=== PATIENT | male | born 1970 | race Caucasian/White ===

== ENCOUNTER → 2020-10-06 12:52 | Outpatient (BNVA) | payer OTHER, SELFPAY | PROVIDERS: PCP Family Medicine; Visit Provider Nurse Practitioner Family | DX: Z20.822 Contact with and (suspected) exposure to COVID-19 (principal) | CPT/HCPCS: 87635 ==

== ENCOUNTER 2020-10-23 08:41 | Outpatient (CLI) | payer OTHER, SELFPAY ==
--- NOTE | 2020-10-23 08:47 | MR_ITS ---
WS: [id number] MRI RIGHT KNEE NONCONTRAST TECHNIQUE: Axial PD, coronal PD fat sat, coronal PD, sagittal PD, and sagittal PD fat-sat images obta ined. CLINICAL INFORMATION: RIGHT KNEE INTERNAL DERANGEMENT COMPARISON: None. FINDINGS: Distal quadriceps and patella tendons are intact. Hypertrophic patella. Normal ACL and PCL. Normal mis ne marrow signal in the femoral condyles and tibial plateau. Normal medial and lateral meniscus. No a cute appearing meniscal tears. Prepatellar and infrapatellar subcutaneous soft tissue edema. Moderate chondromalacia patella worse involving the medial patella facet. Normal medial collateral li gament. Small amount of fluid and edema along the lateral collateral ligament consistent with grade 1 -2 injury. Lateral collateral ligament appears grossly intact. Normal popliteus. Mild joint space jena rowing medial and lateral joint compartments. Mild chondromalacia. MR/MR knee RT wo con* [id number] IMPRESSION: 1. Normal ACL and PCL. 2. No acute appearing meniscal tears. Meniscus appears intact. 3. Small amount of fluid and edema involving the lateral collateral ligament c onsistent with grade 1-2 injury. Normal MCL. 4. Mild chondromalacia involving the medial and lateral joint compartments. 5. Soft tissue edema involving the lateral joint line soft tissues. 6. Moderate chondromalacia patella worse involving the medial patella facet. Outbridge grading: grade II: blister-like swelling/fraying of articular cartila ge extending to surface
== END 2020-10-23 08:42 | disposition home or self-care (01) ==
LOC: RADSHAW 08:44
PROVIDERS: PCP Nurse Practitioner Family; Visit Provider Physician Assistant
DX: M23.91 Unspecified internal derangement of right knee (principal); M22.41 Chondromalacia patellae, right knee; R60.0 Localized edema
CPT/HCPCS: 73721

== ENCOUNTER 2021-02-25 10:34 | Emergency (ER) | payer SELFPAY ==
[2021-02-25 10:34] VITALS: O2SAT 97
[2021-02-25 11:04] VITALS: BP 133/85; PULSE 86; RESP 17; O2SAT 97; BMI 34.0
--- NOTE | 2021-02-25 11:29 | W.ED.COVID ---
HPI - COVID General: Chief Complaint: COVID symptoms Stated Complaint: COVID + Time Seen by Provider: 02/25/21 11:09 Triage information: Has fever, cough or shortness of breath. Exposure to COVID + person last 14 days History of Present Illness: HPI Narrative: Unvaccinated individual that presents with COVID-positive test that he took last night at [facility]. Patient complains about muscle pain backache headache chills and fever. MD complaint: known COVID positive Prior covid testing: yes, results known Prior testing date: 02/24/21 COVID 19 common symptoms: positive fever(s), chills, fatigue, body aches and nausea; negative non-productive cough, productive cough, dyspnea, headache(s), throat pain or nasal congestion COVID 19 other sytmptoms: negative chest pain Onset (ago): day(s) Severity: mild Pertinent comorbid conditions: hypertension Treatment prior to arrival: none COVID Results: SARS-CoV-2 RNA (RT-PCR) Not detected (NOT DETECTED) 10/06/20 12:52 10/06/20 Review of Systems Const: Reports: fever(s), chills, body aches and fatigue Eyes: Denies: change in vision or blurry vision ENMT: Denies: throat pain or nasal congestion Card: Denies: chest pain or dyspnea on exertion Resp: Denies: dyspnea, productive cough or non-productive cough GI: Reports: nausea : Denies: difficulty urinating Musc: Denies: extremity pain Skin/Breast: Denies: rash Neuro: Denies: headache(s) Psych: Denies: anxiety or depression Ildefonso/Lymph: Denies: easy bruising PFS ED PFSH: Social History (Updated 10/06/20 @ 12:41 by Rosario Alfaro NP) Smoking and tobacco status: never smoked Alcohol intake: current Alcohol intake frequency: holidays/special occasions only Physical Exam Const: COMMON NORMALS: no acute distress, average body habitus and patient oriented x3 HENMT: COMMON NORMALS: normocephalic HEAD & SCALP: normal to inspection and normocephalic FACE & SINUS: normal facial exam Eye: COMMON NORMALS: conjunctivae normal GENERAL EYE: appearance normal, both eyes and all related structures CONJUNCTIVA: Yes conjunctivae normal Neck/C-Spine: COMMON NORMALS: no JVD Chest: COMMONS NORMALS: normal inspection of the chest Resp: COMMON NORMALS: normal respiratory effort Cardio: COMMON NORMALS: no JVD GI: INSPECTION: Yes normal to inspection Extremity: COMMON NORMALS: normal to inspection and full ROM Neuro: COMMON NORMALS: patient oriented x3 Psych: COMMON NORMALS: mental status grossly normal Course Vital Signs: Vital signs: Vital Signs Pulse Rate 86 02/25/21 11:04 Respiratory Rate 17 02/25/21 11:04 Blood Pressure 133/85 02/25/21 11:04 Pulse Oximetry 97 02/25/21 11:04 MDM - COVID COVID Results: SARS-CoV-2 RNA (RT-PCR) Not detected (NOT DETECTED) 10/06/20 12:52 10/06/20 Discharge Plan Discharge Patient Disposition: Home Clinical Impression: COVID-19 Condition: Stable Prescriptions: New Zofran 4 mg tablet 4 mg PO Q8H 3 Days Qty: 9 RF: 0 Decadron 6 mg tablet 6 mg PO DAILY Qty: 7 RF: 0 tramadol 50 mg tablet 50 mg PO TID PRN (Reason: pain) Qty: 7 RF: 0 No Action valsartan 80 mg tablet 80 mg PO DAILY RF: 0 buspirone 5 mg tablet 5 mg PO TID PRNRF: 0 venlafaxine 25 mg tablet 25 mg PO DAILY RF: 0 albuterol sulfate [ProAir HFA] 90 mcg/actuation HFA aerosol inhaler 2 puff inhalation Q6H PRNRF: 0 Flovent HFA 44 mcg/actuation HFA aerosol inhaler 2 puff inhalation DAILY RF: 0 Discharge Orders: Discharge ED (Routine); Ordered 02/25/21 Ordered By: David Inman Other Ambulatory Orders: Request for [facility] (Routine) Timeframe: 1 Day Facility: [facility] - Location: Outpatient Surgical Services Ordered By: David Inman Referrals: Suyapa Garcias NP [Primary Care Provider] - Discharge Diet: Advance as tolerated Discharge Activity: Increase activity as tolerated Patient Instructions: COVID-19 (Coronavirus Disease 2019) (ED) Activity Restrictions/Additional Instructions: Follow-up with medical provider as directed. Take medications as prescribed. Return to the ER or your medical provider if condition worsens. Please read and understand discharge instructions. If any questions ask please. Hospital will contact you with an appointment for the monoclonal antibody infusion clinic and you need to bring a copy of your COVID-19 test results with you to the clinic. Coding Level of Care Code ED Accounts Receivable Associate for Ying Fwd Exam Comprehensive
[2021-02-25] MEDS: ondansetron 4 MG Tablet PO (12:18)
[2021-02-25] MEDS: TRAMadol 50 mg Tablet PO (12:18)
[2021-02-25 12:21] VITALS: PULSE 84; RESP 16; O2SAT 97
== END 2021-02-25 12:22 | disposition home or self-care (01) ==
PROVIDERS: Emergency Provider Nurse Practitioner Family; PCP Nurse Practitioner Family
DX: U07.1 COVID-19 (principal)
CPT/HCPCS: 99283; Q0162

== ENCOUNTER 2021-04-20 23:38 | Emergency (ER) | payer BC, SELFPAY ==
[2021-04-20 23:51] VITALS: BP 167/94; PULSE 110; RESP 26; TEMP 38.4; O2SAT 96; BMI 35.4
--- NOTE | 2021-04-20 23:51 | ED_ITS ---
HPI - Nausea/Vomiting/Diarrhea General: Chief complaint: Nausea/Vomiting/Diarrhea Stated complaint: Headach\ADB Pain\Diahrea\Fever Time Seen by Provider: 04/20/21 23:41 Source: patient Mode of arrival: ambulatory Limitations: no limitations History of Present Illness: Patient is a 51-year-old male who presents to ED today with a complaint of abdominal pain, diarrhea, headache, fevers or chills. Patient states symptoms began yesterday. He is not having any nausea or vomiting. He does not complain of any bloody or black stools. He is currently rating abdominal pain at a 2/10. He denies sick contacts. He states he did eat [employer] Vill[employer] the day before symptoms started when asked about possible bad food exposures. He denies any URI symptoms. No cough, chest pain, or shortness of breath. MD elicited complaint: diarrhea and abdominal pain Onset (ago): day(s) Description of diarrhea: watery and semi-solid Associated nausea: No Associated abdominal pain: Yes Location of pain: Periumbilical Pain consistency: intermittent Severity: mild Quality: cramping Exacerbating factors: eating Relieving factors: none Associated symtoms: Reports headache(s); Denies change in vision, chest pain, dizziness, dysuria, nausea, palpitations or syncope Review of Systems Const: Reports: fever(s) and chills Eyes: Denies: change in vision, blurry vision, blind spots, photophobia, floaters or seeing flashes ENMT: Denies: throat pain, odynophagia, nasal discharge, nasal congestion or sinus pain Card: Denies: chest pain, palpitations, edema, lightheadedness, syncope or pre-syncope Resp: Denies: dyspnea, productive cough, non-productive cough, hemoptysis or chest congestion GI: Reports: abdominal pain and diarrhea; Denies: nausea, vomiting, hematemesis, heartburn, hematochezia or melena : Denies: flank pain, dysuria or hematuria Musc: Denies: neck pain, back pain, extremity pain or joint pain Skin/Breast: Denies: rash Neuro: Reports: headache(s); Denies: numbness in extremities, weakness in extremities, sensory changes, lack of coordination, difficulty walking, dizziness or confusion PFS ED PFSH: Medical History No pertinent family history Surgical History No pertinent past surgical history Social History Smoking and tobacco status: never smoked Alcohol intake: current Alcohol intake frequency: holidays/special occasions only Physical Exam Const: COMMON NORMALS: patient oriented x3, no limitations, alert and well nourished GENERAL APPEARANCE: cooperative and in distress (looks like he doesn't feel well ) ORIENTATION/CONSCIOUSNESS: Yes awake, Yes oriented to person, Yes oriented to place and Yes oriented to time HENMT: COMMON NORMALS: normocephalic and atraumatic HEAD & SCALP: normal to inspection, normocephalic and atraumatic FACE & SINUS: normal facial exam MOUTH: Normal oral and palatal mucosa present, lip normal and tongue normal THROAT: posterior oropharynx normal, tonsils normal and uvula midline Eye: GENERAL EYE: appearance normal, both eyes and all related structures Neck/C-Spine: COMMON NORMALS: full ROM and no lymphadenopathy Resp: COMMON NORMALS: normal respiratory effort and clear to auscultation bilaterally AUSCULTATION: clear to auscultation bilaterally Cardio: COMMON NORMALS: regular rhythm RATE: tachycardic (mild; pt is febrile) RHYTHM: regular rhythm GI: COMMON NORMALS: Normal to inspection, nondistended, normoactive bowel sounds present, Soft to palpation, non-tender, No hepatosplenomegaly present and no masses INSPECTION: Yes normal to inspection AUSCULTATION: Yes normoactive bowel sounds PALPATION: Yes Soft to palpation and Yes No hepatosplenomegaly present : COMMON NORMALS: Yes no CVA tenderness BLADDER/KIDNEY EXAM: Yes no CVA tenderness Back/Pelvis: COMMON NORMALS: no CVA tenderness Extremity: COMMON NORMALS: normal to inspection GENERAL: Yes normal exam except as noted Neuro: MIHAI COMA SCALE: document GCS findings Mihai coma scale eye opening: Spontaneous Mihai coma scale verbal response: Orientated Mihai coma scale motor response: Obey commands [place] coma scale total score: 15 COMMON NORMALS: patient oriented x3, moves all extremities, no focal motor deficits and no sensory deficits noted SENSORIUM/ORIENTATION: Yes alert, Yes oriented to person, Yes oriented to place and Yes oriented to time Skin: COMMON NORMALS: no rashes or lesions noted GENERAL SKIN EXAM: no rashes or lesions noted Course Vital Signs: Vital signs: Vital Signs Temperature 99.1 F 04/21/21 01:45 Pulse Rate 88 04/21/21 01:43 Respiratory Rate 16 04/21/21 02:34 Blood Pressure 167/94 04/20/21 23:51 Pulse Oximetry 92 04/21/21 01:43 MDM - Nausea/Vomiting/Diarrhea Medical Decision Making Patient is a 51-year-old male here for main concerns of diarrhea, body aches, and fevers. He states symptoms started the day after he ate [employer] Vill[employer]. He is currently rating his abdominal pain at a 2/10. He has not had any episodes of diarrhea while here so was not able to give a stool samples. He was written outpatient orders for these. Patient was febrile upon arrival but this has resolved after antipyretics. Lab work shows a white count of 11.6. CT scan showing diffuse infectious/inflammatory colitis. Patient is feeling much better after IV fluids and medications here. At this point recommend conservative therapies at home. Will prescribe Cipro/Flagyl and recommend patient start th javier in 24 to 48 hours if he does not seem to be improving. Strict return to ED precautions verbally given to patient. Lab Data : 04/20/21 23:50 04/20/21 23:50 Radiology Impressions Abdomen/Pelvis CT 04/21/21 00:37 IMPRESSION: 1. Fatty infiltration of the liver. 2. Diffuse infectious/inflammatory colitis. 3. Infectious/inflammatory terminal ileitis. 4. There are few loops of mildly prominent small bowel , nonspecific and likely reactive secondary to ileitis and colitis. Laboratory Results WBC 11.6 10^3/uL (4.0-10.0) H 04/20/21 23:50 RBC 4.95 10^6/uL (4.1-5.3) 04/20/21 23:50 Hgb 14.9 g/dL (11.7-16.6) 04/20/21 23:50 Hct 42.9 % (42.0-52.0) 04/20/21 23:50 MCV 86.7 fl (80-94) 04/20/21 23:50 MCH 30.1 pg (28.0-34.0) 04/20/21 23:50 MCHC 34.7 g/dL (30.0-36.0) 04/20/21 23:50 RDW 12.3 % (12.1-15.1) 04/20/21 23:50 Plt Count 211 10^3/cmm (130-400) 04/20/21 23:50 MPV 11.6 fL (7.4-10.4) H 04/20/21 23:50 Neut % (Auto) 83.6 % 04/20/21 23:50 Lymph % (Auto) 9.6 % 04/20/21 23:50 [place] % (Auto) 6.2 % 04/20/21 23:50 Eos % (Auto) 0.0 % 04/20/21 23:50 Baso % (Auto) 0.3 % 04/20/21 23:50 Neut # (Auto) 9.71 10^3/uL (1.8-7.7) H 04/20/21 23:50 Lymph # (Auto) 1.1 10^3/uL (0.8-4.8) 04/20/21 23:50 [place] # (Auto) 0.7 10^3/uL (0.2-0.9) 04/20/21 23:50 Eos # (Auto) 0.0 10^3/uL (0.0-0.8) 04/20/21 23:50 Baso # (Auto) 0.0 10^3/uL (0.0-0.1) 04/20/21 23:50 Nucleated RBC % (auto) 0 % 04/20/21 23:50 Nucleated RBCs # 0.0 /100WBC 04/20/21 23:50 Sodium 131 mmol/L (136-145) L 04/20/21 23:50 Potassium 3.4 mmol/L (3.5-5.1) L 04/20/21 23:50 Chloride 95 mmol/L (98-107) L 04/20/21 23:50 Carbon Dioxide 23 mmol/L (22-29) 04/20/21 23:50 Anion Gap 16.4 (5-19) 04/20/21 23:50 BUN 15 mg/dL (6-20) 04/20/21 23:50 Creatinine 1.0 mg/dL (0.7-1.2) 04/20/21 23:50 GFR Calculation 79.1 mL/min (90-130) L 04/20/21 23:50 Glucose 149 mg/dL (65-115) H 04/20/21 23:50 Calculated Osmolality 276 mOsm/kg (285-295) L 04/20/21 23:50 Calcium 8.9 mg/dL (8.5-10.5) 04/20/21 23:50 Total Bilirubin 0.5 mg/dL (0.15-1.2) 04/20/21 23:50 AST 24 U/L (0-40) 04/20/21 23:50 ALT 41 U/L (0-41) 04/20/21 23:50 Alkaline Phosphatase 67 IU/L (40-130) 04/20/21 23:50 Total Protein 7.2 g/dL (6.6-8.7) 04/20/21 23:50 Albumin 4.4 g/dL (3.5-5.2) 04/20/21 23:50 Globulin 2.8 g/dL (1.3-4.6) 04/20/21 23:50 Lipase 72 U/L (13-60) H 04/20/21 23:50 Urine Color Yellow (Yellow) 04/21/21 02:03 Urine Appearance Clear (CLEAR) 04/21/21 02:03 Urine pH 6.5 (5-7) 04/21/21 02:03 Ur Specific [place] 1.005 (1.005-1.030) 04/21/21 02:03 Urine Protein 1+ (Negative) H 04/21/21 02:03 Urine Glucose (UA) Norm (Normal) 04/21/21 02:03 Urine Ketones 1+ (Negative) H 04/21/21 02:03 Urine Blood Neg (Negative) 04/21/21 02:03 Urine Nitrate Negative (Negative) 04/21/21 02:03 Urine Bilirubin Neg (Negative) 04/21/21 02:03 Urine Urobilinogen Norm mg/dL (Negative) 04/21/21 02:03 Ur Leukocyte Esterase Negative (Negative) 04/21/21 02:03 Urine RBC 0-4 /hpf (0-2) H 04/21/21 02:03 Urine WBC 0-4 /hpf (0-5) H 04/21/21 02:03 Ur Squamous Epith Cells 0-4 /hpf (0-5) H 04/21/21 02:03 Amorphous Sediment Not Reportable 04/21/21 02:03 Urine Bacteria Trace /hpf (NONE) 04/21/21 02:03 Coronavirus 229E (PCR) Not detected (NOT DETECT) 04/21/21 01:42 Influenza Type A Ag Negative (Negative) 04/20/21 23:50 Influenza Type B Ag Negative (Negative) 04/20/21 23:50 SARS-CoV-2 (PCR) Not detected (NOT DETECT) 04/21/21 01:42 SARS-CoV-2 RNA (RT-PCR) Cancelled 04/21/21 01:42 Discharge Plan Discharge Patient Disposition: Home Clinical Impression: Colitis Condition: Stable Prescriptions: New Cipro 500 mg tablet 500 mg PO Q12H Qty: 14 0RF metronidazole 500 mg tablet 500 mg PO BID 7 Days Qty: 14 0RF No Action valsartan 80 mg tablet 80 mg PO DAILY 0RF buspirone 5 mg tablet 5 mg PO TID PRN0RF venlafaxine 25 mg tablet 25 mg PO DAILY 0RF albuterol sulfate [ProAir HFA] 90 mcg/actuation HFA aerosol inhaler 2 puff inhalation Q6H PRN0RF Flovent HFA 44 mcg/actuation HFA aerosol inhaler 2 puff inhalation DAILY 0RF Rx Instructions: administer with spacer Decadron 6 mg tablet 6 mg PO DAILY Qty: 7 0RF tramadol 50 mg tablet 50 mg PO TID PRN (Reason: pain) Qty: 7 0RF Discharge Orders: Discharge ED (Routine); Ordered 04/21/21 Ordered By: Peri Conte Referrals: Suyapa Garcias END USER SUPPORT SPECIALIST [Primary Care Provider] - Patient Instructions: Colitis (ED) Activity Restrictions/Additional Instructions: As we discussed most cases of acute diarrhea/enterocolitis are self-limited and treatment is geared towards hydration. We have attempted stool samples here but were unsuccessful. You have been given an outpatient order for these-you may bring sample to the lab at any time. I have written you for antibiotics that I only want you to fill if symptoms do not improve over the next 24 to 48 hours. You need to return to the emergency department for severe abdominal pain, repetitive episodes of diarrhea, bloody diarrhea, repetitive episodes of vomiting, continued fevers, generally feeling unwell, or any other concerns you may have. I hope you begin to feel better soon. Coding Level of Care Code ED Library Aide for Ying Fwd Exam Comprehensive
[2021-04-20] MEDS: acetaminophen 500 mg Tablet 1000 MG PO (23:57)
[2021-04-20] MEDS: lactated ringers 1,000 ML 999 ML IV (23:57)
[2021-04-21 00:17] LABS: Basophils % 0.3 %; Hematocrit 42.9 % (42.0-52.0); Hemoglobin 14.9 g/dL (11.7-16.6); Lymphocytes # 1.1 10^3/uL (0.8-4.8); Lymphocytes % 9.6 %; Mean Corpuscular HGB Conc 34.7 g/dL (30.0-36.0); Mean Corpuscular Hemoglobin 30.1 pg (28.0-34.0); Mean Corpuscular Volume 86.7 fl (80-94); Mean Platelet Volume 11.6 fL (7.4-10.4); Monocytes # 0.7 10^3/uL (0.2-0.9); Monocytes % 6.2 %; Neutrophils # 9.71 10^3/uL (1.8-7.7); Neutrophils % 83.6 %; Nucleated Red Blood Cells % 0 %; Platelet Count 211 10^3/cmm (130-400); Red Blood Count 4.95 10^6/uL (4.1-5.3); Red Cell Distribution Width 12.3 % (12.1-15.1); White Blood Count 11.6 10^3/uL (4.0-10.0)
[2021-04-21 00:27] LABS: Alanine Aminotransferase 41 U/L (0-41); Albumin Level 4.4 g/dL (3.5-5.2); Alkaline Phosphatase 67 IU/L (40-130); Anion Gap 16.4 (5-19); Blood Urea Nitrogen 15 mg/dL (6-20); Calcium 8.9 mg/dL (8.5-10.5); Carbon Dioxide 23 mmol/L (22-29); Chloride 95 mmol/L (98-107); Globulin 2.8 g/dL (1.3-4.6); Glomerular Filtration Rate 79.1 mL/min (90-130); Glucose 149 mg/dL (65-115); Influenza A by IFA Negative (Negative); Influenza B by IFA Negative (Negative); Lipase 72 U/L (13-60); Osmolality Calculated 276 mOsm/kg (285-295); Potassium 3.4 mmol/L (3.5-5.1); Sodium 131 mmol/L (136-145); Total Bilirubin 0.5 mg/dL (0.15-1.2); Total Protein 7.2 g/dL (6.6-8.7)
[2021-04-21 00:36] LABS: Aspartate Amino Transferase 24 U/L (0-40)
--- NOTE | 2021-04-21 00:37 | CTR_ITS ---
PROCEDURE INFORMATION: Exam: CT Abdomen And Pelvis With Contrast Exam date and time: 04/21/2021 12:37 AM Age: 51 years old Clinical indication: Fever and other: Diarrhea; Abdominal pain; Generalized; Patient HX: Diffuse abd pain with fever and diarrhea. ; Additional info: Abdominal pain, diarrhea, fevers TECHNIQUE: Imaging protocol: Computed tomography of the abdomen and pelvis with contrast. Radiation optimization: All CT scans at this facility use at least one of these dose optimization techniques: automated exposure control; mA and/or kV adjustment per patient size (includes targeted exams where dose is matched to clinical indication); or iterative reconstruction. Contrast material: OMNI 300; Contrast volume: 90 ml; Contrast route: INTRAVENOUS (IV); COMPARISON: CTA Chest-Pulmonary Emb [id number] 01/12/2016 8:30 AM RADIATION DOSE METRICS: Total DLP (mGy-cm): 1875.21 FINDINGS: Lungs: The lung bases are clear. No effusion Liver: There is fatty infiltration of the liver. Gallbladder and bile ducts: No wall thickening, pericholecystic fluid or stones. Pancreas: Normal. No ductal dilation. Spleen: Normal. No splenomegaly. Adrenal glands: Normal. No mass. Kidneys and ureters: Normal. No hydronephrosis. Stomach and bowel: There is mild colon wall thickening and pericolonic fat stranding . There is thickening of the wall of the terminal ileum with adjacent fat stranding. There are few loops of mildly prominent small bowel , nonspecific and likely reactive secondary to ileitis and colitis. Appendix: No evidence of appendicitis. Intraperitoneal space: Unremarkable. No free air. No significant fluid collection. Vasculature: Unremarkable. No abdominal aortic aneurysm. Lymph nodes: There are few visualized but nonenlarged lymph nodes medial to the cecum, likely reactive. Urinary bladder: Unremarkable as visualized. Reproductive: Unremarkable as visualized. Bones/joints: Unremarkable. No acute fracture. Soft tissues: Unremarkable. CT/CT abdomen pelvis w con* [id number] IMPRESSION: 1. Fatty infiltration of the liver. 2. Diffuse infectious/inflammatory colitis. 3. Infectious/inflammatory terminal ileitis. 4. There are few loops of mildly prominent small bowel , nonspecific and likely reactive secondary to ileitis and colitis.
[2021-04-21 00:41] VITALS: RESP 22
[2021-04-21] MEDS: ondansetron 2 mg/ML SDV 2 mL 4 MG IVP (00:41)
[2021-04-21] MEDS: morphine 4 mg/mL SDV 1 mL IVP (00:41)
[2021-04-21] MEDS: potassium chloride ER 20 mEq Tablet 40 MEQ PO (00:44)
[2021-04-21] MEDS: iohexol 300 mg/mL 100 mL Btl IV (00:52)
[2021-04-21 01:43] VITALS: PULSE 88; RESP 18; O2SAT 92
[2021-04-21 01:45] VITALS: TEMP 37.3
[2021-04-21 02:28] LABS: Add Urine Microscopic? YES; Bilirubin Urine Neg (Negative); Blood Urine Neg (Negative); Glucose Urine UA Norm (Normal); Ketones Urine 1+ (Negative); Leukocyte Esterase Urine Negative (Negative); Nitrate Urine Negative (Negative); Protein Urine 1+ (Negative); Specific Gravity, Urine 1.005 (1.005-1.030); Urine Appearance Clear (CLEAR); Urine Color Yellow (Yellow); Urobilinogen Urine Norm (Negative); pH Urine 6.5 (5-7)
[2021-04-21 02:29] LABS: RBC Urine 0-4 /hpf (0-2); WBC Urine 0-4 /hpf (0-5)
[2021-04-21 02:30] LABS: Add Urine Culture? No; Bacteria Urine TRACE /hpf; Squamous Epithelial Cell Urine 0-4 /hpf (0-5)
[2021-04-21 02:34] VITALS: RESP 16
[2021-04-21 04:37] LABS: Adenovirus Not Detected (NOT DETECT); Chlamydia Pneumoniae Not Detected (NOT DETECT); Coronavirus 229E,HKU1,NL63,OC4 Not Detected (NOT DETECT); Human Metapneumovirus Not Detected (NOT DETECT); Human Rhinovirus/Enterovirus Not Detected (NOT DETECT); Influenza A Not Detected (NOT DETECT); Influenza A H1 Not Detected (NOT DETECT); Influenza A H1-2009 Not Detected (NOT DETECT); Influenza A H3 Not Detected (NOT DETECT); Influenza B Not Detected (NOT DETECT); Mycoplasma Pneumoniae Not Detected (NOT DETECT); Parainfluenza Virus Type 1 Not Detected (NOT DETECT); Parainfluenza Virus Type 2 Not Detected (NOT DETECT); Parainfluenza Virus Type 3 Not Detected (NOT DETECT); Parainfluenza Virus Type 4 Not Detected (NOT DETECT); Respiratory Syncytial Virus A Not Detected (NOT DETECT); Respiratory Syncytial Virus B Not Detected (NOT DETECT); SARS-COV-2 Not Detected (NOT DETECT)
== END 2021-04-21 02:35 | disposition home or self-care (01) ==
PROVIDERS: Emergency Provider Physician Assistant; PCP Nurse Practitioner Family
DX: K52.9 Noninfective gastroenteritis and colitis, unspecified (principal); Z20.822 Contact with and (suspected) exposure to COVID-19
CPT/HCPCS: 74177; 80053; 81001; 82274; 83630; 83690; 85025; 87493; 87506; 87635; 87804; 96361; 96374; 96375; 99284; J2270; J2405; Q9967

== ENCOUNTER 2021-04-21 13:26 | Emergency (ER) | payer BC, SELFPAY ==
[2021-04-21 13:32] VITALS: BP 145/82; PULSE 92; RESP 20; TEMP 36.7; O2SAT 98; BMI 35.4
--- NOTE | 2021-04-21 13:49 | ED_ITS ---
Documented by User: OMAR Paniagua 04/22/21 07:10 HPI - Abdominal Pain General: Chief Complaint: Abdominal Pain Stated Complaint: diarrhea, headache x3 days Time Seen by Provider: 04/21/21 13:37 History of Present Illness: Patient is a 51-year-old male comes to the ED with abdominal pain. Patient was seen here last night April 20 for same complaint. Patient is having a headache and abdominal pain along with nausea and diarrhea. He says he has been having liquid diarrhea every 20 to 30 minutes today. Abdominal pain described as cramping and he rates it a 10 out of 10. Denies any blood in stool. Associated Symptoms: Reports diarrhea and nausea; Denies chills, constipation, dysuria, fever(s), hematochezia, hematuria and vomiting Review of Systems Const: Denies: fever(s), chills or fatigue Eyes: Denies: change in vision or eye discomfort ENMT: Denies: throat pain, odynophagia, nasal discharge or nasal congestion Card: Denies: chest pain, palpitations, edema, swelling of feet/ankles, dyspnea on exertion or orthopnea Resp: Denies: dyspnea, productive cough or non-productive cough GI: Reports: abdominal pain, nausea and diarrhea; Denies: vomiting, constipation or hematochezia : Denies: flank pain, difficulty urinating, dysuria or hematuria Musc: Denies: neck pain, back pain or extremity swelling Skin/Breast: Denies: rash or new lesions Neuro: Reports: headache(s); Denies: numbness in extremities or weakness in extremities [facility], LAT[facility] ED PFSH: Medical History No pertinent family history Surgical History No pertinent past surgical history Social History Smoking and tobacco status: never smoked Alcohol intake: current Alcohol intake frequency: holidays/special occasions only Physical Exam Const: COMMON NORMALS: patient oriented x3 and alert GENERAL APPEARANCE: cooperative HENMT: COMMON NORMALS: normocephalic HEAD & SCALP: normocephalic MOUTH: Normal oral and palatal mucosa present THROAT: posterior oropharynx normal and uvula midline Neck/C-Spine: COMMON NORMALS: supple GENERAL: Yes normal visual inspection Resp: COMMON NORMALS: normal respiratory effort, No retractions, No use of accessory muscles and clear to auscultation bilaterally AUSCULTATION: clear to auscultation bilaterally Cardio: COMMON NORMALS: regular rate, regular rhythm, S1 normal heart sound present, S2 normal heart sound present, No gallops present (Cardio), No clicks present (Cardio), No murmurs present (Cardio) and Peripheral pulses 2+ throughout RATE: regular rate RHYTHM: regular rhythm HEART SOUNDS: S1 normal heart sound present and S2 normal heart sound present PERIPHERAL PULSES: Peripheral pulses 2+ throughout GI: COMMON NORMALS: Normal to inspection, nondistended, normoactive bowel sounds present, Soft to palpation and no masses PALPATION: Yes Soft to palpation and Yes Tenderness to palpation present (GI) Details: other (generalized tenderness throughout abdomen) : COMMON NORMALS: Yes no CVA tenderness BLADDER/KIDNEY EXAM: Yes no CVA tenderness Back/Pelvis: COMMON NORMALS: no CVA tenderness Extremity: COMMON NORMALS: normal to inspection Neuro: COMMON NORMALS: patient oriented x3 SENSORIUM/ORIENTATION: Yes alert GAIT: Yes Normal gait present Skin: GENERAL SKIN EXAM: dry skin Course Vital Signs: Vital signs: Vital Signs Temperature 97.4 F L 04/21/21 16:30 Pulse Rate 88 04/21/21 18:00 Respiratory Rate 18 04/21/21 18:00 Blood Pressure 174/88 04/21/21 18:00 Pulse Oximetry 96 04/21/21 18:00 MDM - Abdominal Pain Lab Data I reviewed the patient's lab results. : 04/21/21 14:05 04/21/21 14:05 Labs/Radiology: Radiology Impressions Abdomen/Pelvis CT 04/21/21 17:03 IMPRESSION: 1. Redemonstration of mild wall thickening and surrounding inflammation/fluid at the terminal ileum as well as mild wall thickening with mild surrounding inflammation of the descending colon. Findings are suspicious for ileocolitis that may be infectious or inflammatory in nature. 2. Incidental/nonacute findings are listed in the report. Laboratory Results WBC 7.3 10^3/uL (4.0-10.0) 04/21/21 14:05 RBC 4.99 10^6/uL (4.1-5.3) 04/21/21 14:05 Hgb 14.8 g/dL (11.7-16.6) 04/21/21 14:05 Hct 43.0 % (42.0-52.0) 04/21/21 14:05 MCV 86.2 fl (80-94) 04/21/21 14:05 MCH 29.7 pg (28.0-34.0) 04/21/21 14:05 MCHC 34.4 g/dL (30.0-36.0) 04/21/21 14:05 RDW 12.5 % (12.1-15.1) 04/21/21 14:05 Plt Count 182 10^3/cmm (130-400) 04/21/21 14:05 MPV 10.8 fL (7.4-10.4) H 04/21/21 14:05 Neut % (Auto) 77.6 % 04/21/21 14:05 Lymph % (Auto) 14.5 % 04/21/21 14:05 Ramsey % (Auto) 7.1 % 04/21/21 14:05 Eos % (Auto) 0.3 % 04/21/21 14:05 Baso % (Auto) 0.4 % 04/21/21 14:05 Neut # (Auto) 5.65 10^3/uL (1.8-7.7) 04/21/21 14:05 Lymph # (Auto) 1.1 10^3/uL (0.8-4.8) 04/21/21 14:05 Ramsey # (Auto) 0.5 10^3/uL (0.2-0.9) 04/21/21 14:05 Eos # (Auto) 0.0 10^3/uL (0.0-0.8) 04/21/21 14:05 Baso # (Auto) 0.0 10^3/uL (0.0-0.1) 04/21/21 14:05 Nucleated RBC % (auto) 0 % 04/21/21 14:05 Nucleated RBCs # 0.0 /100WBC 04/21/21 14:05 Sodium 134 mmol/L (136-145) L 04/21/21 14:05 Potassium 3.8 mmol/L (3.5-5.1) 04/21/21 14:05 Chloride 99 mmol/L (98-107) 04/21/21 14:05 Carbon Dioxide 25 mmol/L (22-29) 04/21/21 14:05 Anion Gap 13.8 (5-19) 04/21/21 14:05 BUN 17 mg/dL (6-20) 04/21/21 14:05 Creatinine 0.8 mg/dL (0.7-1.2) 04/21/21 14:05 GFR Calculation 102.3 mL/min (90-130) 04/21/21 14:05 Glucose 119 mg/dL (65-115) H 04/21/21 14:05 Calculated Osmolality 281 mOsm/kg (285-295) L 04/21/21 14:05 Lactic Acid 1.0 mmol/L (0.5-2.2) 04/21/21 14:51 Calcium 9.3 mg/dL (8.5-10.5) 04/21/21 14:05 Total Bilirubin 0.5 mg/dL (0.15-1.2) 04/21/21 14:05 AST 20 U/L (0-40) 04/21/21 14:05 ALT 35 U/L (0-41) 04/21/21 14:05 Alkaline Phosphatase 65 IU/L (40-130) 04/21/21 14:05 Total Protein 7.3 g/dL (6.6-8.7) 04/21/21 14:05 Albumin 4.0 g/dL (3.5-5.2) 04/21/21 14:05 Globulin 3.3 g/dL (1.3-4.6) 04/21/21 14:05 Lipase 62 U/L (13-60) H 04/21/21 14:05 Discharge Plan Discharge Patient Disposition: Home Clinical Impression: Ileocolitis Condition: Stable Prescriptions: No Action valsartan 80 mg tablet 80 mg PO DAILY 0RF buspirone 5 mg tablet 5 mg PO TID PRN0RF venlafaxine 25 mg tablet 25 mg PO DAILY 0RF albuterol sulfate [ProAir HFA] 90 mcg/actuation HFA aerosol inhaler 2 puff inhalation Q6H PRN0RF Flovent HFA 44 mcg/actuation HFA aerosol inhaler 2 puff inhalation DAILY 0RF Rx Instructions: administer with spacer Decadron 6 mg tablet 6 mg PO DAILY Qty: 7 0RF tramadol 50 mg tablet 50 mg PO TID PRN (Reason: pain) Qty: 7 0RF Cipro 500 mg tablet 500 mg PO Q12H Qty: 14 0RF metronidazole 500 mg tablet 500 mg PO BID 7 Days Qty: 14 0RF Discharge Orders: Discharge ED (Routine); Ordered 04/21/21 Ordered By: Peri Conte Referrals: Suyapa Garcias ENRICHMENT TEACHER [Primary Care Provider] - Activity Restrictions/Additional Instructions: As we discussed fill the antibiotics from yesterday and start them immediately. Continue to push fluids to avoid dehydration. Stick with a very bland liquid diet over the next 1 to 2 days and slowly advance as tolerated. You need to return to the emergency department for severe or uncontrollable abdominal pain, continued fevers, repetitive episodes of vomiting, large amounts of blood in your diarrhea, generally feeling unwell, or any other concerns you may have. I hope you begin to feel better soon. Sign Out Sign Out Data: Patient Sign Out occurred on 04/21/21 at 17:12. Patient's care was discussed, and care was transferred from to OMAR Chaney. Coding Level of Care Code ED Secondary English Teacher for Chg Fwd Exam Comprehensive Documented by User: OMAR Chaney 04/21/21 18:05 HPI - Abdominal Pain General: Chief Complaint: Abdominal Pain Stated Complaint: diarrhea, headache x3 days Time Seen by Provider: 04/21/21 13:37 [facility] ED PFSH: Medical History No pertinent family history Surgical History No pertinent past surgical history Social History Smoking and tobacco status: never smoked Alcohol intake: current Alcohol intake frequency: holidays/special occasions only Course Vital Signs: Vital signs: Vital Signs Temperature 97.4 F L 04/21/21 16:30 Pulse Rate 88 03/08/22 18:00 Respiratory Rate 18 04/21/21 18:00 Blood Pressure 174/88 04/21/21 18:00 Pulse Oximetry 96 04/21/21 18:00 MDM - Abdominal Pain Medical Decision Making Patient here for repeat evaluation regarding abdominal pain and diarrhea. Patient was seen in our facility yesterday/early this morning. Patient arrives afebrile. He is not tachycardic. His white count is normal. Lactate is normal. Chemistry panel is unremarkable. Patient had a few episodes of diarrhea when he first arrived but has not had any further stools. Still not having any vomiting. Repeat CT imaging shows re-demonstration of mild ileocolitis-no advancement since yesterday. Patient was started on IV Cipro and Flagyl here. He was given prescriptions of these medications yesterday. Recommend he start these. Stool samples are positive for blood and lactoferrin. C diff negative. Parasite/bacterial panel pending. Recommend close observation at home for progression of symptoms. Spoke about hospitalization if he is still not improving despite antibiotics. Patient and verbalize understanding. Lab Data : 04/21/21 14:05 04/21/21 14:05 Labs/Radiology: Radiology Impressions Abdomen/Pelvis CT 04/21/21 17:03 IMPRESSION: 1. Redemonstration of mild wall thickening and surrounding inflammation/fluid at the terminal ileum as well as mild wall thickening with mild surrounding inflammation of the descending colon. Findings are suspicious for ileocolitis that may be infectious or inflammatory in nature. 2. Incidental/nonacute findings are listed in the report. Laboratory Results WBC 7.3 10^3/uL (4.0-10.0) 04/21/21 14:05 RBC 4.99 10^6/uL (4.1-5.3) 04/21/21 14:05 Hgb 14.8 g/dL (11.7-16.6) 04/21/21 14:05 Hct 43.0 % (42.0-52.0) 04/21/21 14:05 MCV 86.2 fl (80-94) 04/21/21 14:05 MCH 29.7 pg (28.0-34.0) 04/21/21 14:05 MCHC 34.4 g/dL (30.0-36.0) 04/21/21 14:05 RDW 12.5 % (12.1-15.1) 04/21/21 14:05 Plt Count 182 10^3/cmm (130-400) 04/21/21 14:05 MPV 10.8 fL (7.4-10.4) H 04/21/21 14:05 Neut % (Auto) 77.6 % 04/21/21 14:05 Lymph % (Auto) 14.5 % 04/21/21 14:05 Ramsey % (Auto) 7.1 % 04/21/21 14:05 Eos % (Auto) 0.3 % 04/21/21 14:05 Baso % (Auto) 0.4 % 04/21/21 14:05 Neut # (Auto) 5.65 10^3/uL (1.8-7.7) 04/21/21 14:05 Lymph # (Auto) 1.1 10^3/uL (0.8-4.8) 04/21/21 14:05 Ramsey # (Auto) 0.5 10^3/uL (0.2-0.9) 04/21/21 14:05 Eos # (Auto) 0.0 10^3/uL (0.0-0.8) 04/21/21 14:05 Baso # (Auto) 0.0 10^3/uL (0.0-0.1) 04/21/21 14:05 Nucleated RBC % (auto) 0 % 04/21/21 14:05 Nucleated RBCs # 0.0 /100WBC 04/21/21 14:05 Sodium 134 mmol/L (136-145) L 04/21/21 14:05 Potassium 3.8 mmol/L (3.5-5.1) 04/21/21 14:05 Chloride 99 mmol/L (98-107) 04/21/21 14:05 Carbon Dioxide 25 mmol/L (22-29) 04/21/21 14:05 Anion Gap 13.8 (5-19) 04/21/21 14:05 BUN 17 mg/dL (6-20) 04/21/21 14:05 Creatinine 0.8 mg/dL (0.7-1.2) 04/21/21 14:05 GFR Calculation 102.3 mL/min (90-130) 04/21/21 14:05 Glucose 119 mg/dL (65-115) H 04/21/21 14:05 Calculated Osmolality 281 mOsm/kg (285-295) L 04/21/21 14:05 Lactic Acid 1.0 mmol/L (0.5-2.2) 04/21/21 14:51 Calcium 9.3 mg/dL (8.5-10.5) 04/21/21 14:05 Total Bilirubin 0.5 mg/dL (0.15-1.2) 04/21/21 14:05 AST 20 U/L (0-40) 04/21/21 14:05 ALT 35 U/L (0-41) 04/21/21 14:05 Alkaline Phosphatase 65 IU/L (40-130) 04/21/21 14:05 Total Protein 7.3 g/dL (6.6-8.7) 04/21/21 14:05 Albumin 4.0 g/dL (3.5-5.2) 04/21/21 14:05 Globulin 3.3 g/dL (1.3-4.6) 04/21/21 14:05 Lipase 62 U/L (13-60) H 04/21/21 14:05 Discharge Plan Discharge Patient Disposition: Home Clinical Impression: Ileocolitis Condition: Stable Prescriptions: No Action valsartan 80 mg tablet 80 mg PO DAILY 0RF buspirone 5 mg tablet 5 mg PO TID PRN0RF venlafaxine 25 mg tablet 25 mg PO DAILY 0RF albuterol sulfate [ProAir HFA] 90 mcg/actuation HFA aerosol inhaler 2 puff inhalation Q6H PRN0RF Flovent HFA 44 mcg/actuation HFA aerosol inhaler 2 puff inhalation DAILY 0RF Rx Instructions: administer with spacer Decadron 6 mg tablet 6 mg PO DAILY Qty: 7 0RF tramadol 50 mg tablet 50 mg PO TID PRN (Reason: pain) Qty: 7 0RF Cipro 500 mg tablet 500 mg PO Q12H Qty: 14 0RF metronidazole 500 mg tablet 500 mg PO BID 7 Days Qty: 14 0RF Discharge Orders: Discharge ED (Routine); Ordered 04/21/21 Ordered By: Peri Conte Referrals: Suyapa Garcias NP [Primary Care Provider] - Activity Restrictions/Additional Instructions: As we discussed fill the antibiotics from yesterday and start them immediately. Continue to push fluids to avoid dehydration. Stick with a very bland liquid diet over the next 1 to 2 days and slowly advance as tolerated. You need to return to the emergency department for severe or uncontrollable abdominal pain, continued fevers, repetitive episodes of vomiting, large amounts of blood in your diarrhea, generally feeling unwell, or any other concerns you may have. I hope you begin to feel better soon. Sign Out Sign Out Data: Patient Sign Out occurred on 04/21/21 at 17:12. Patient's care was discussed, and care was transferred from to OMAR Chaney. Coding Level of Care Code ED Secondary English Teacher for Mariog Fwd Exam Comprehensive
[2021-04-21 14:16] LABS: Basophils % 0.4 %; Eosinophils % 0.3 %; Hemoglobin 14.8 g/dL (11.7-16.6); Lymphocytes # 1.1 10^3/uL (0.8-4.8); Lymphocytes % 14.5 %; Mean Corpuscular HGB Conc 34.4 g/dL (30.0-36.0); Mean Corpuscular Hemoglobin 29.7 pg (28.0-34.0); Mean Corpuscular Volume 86.2 fl (80-94); Mean Platelet Volume 10.8 fL (7.4-10.4); Monocytes # 0.5 10^3/uL (0.2-0.9); Monocytes % 7.1 %; Neutrophils # 5.65 10^3/uL (1.8-7.7); Neutrophils % 77.6 %; Nucleated Red Blood Cells % 0 %; Platelet Count 182 10^3/cmm (130-400); Red Blood Count 4.99 10^6/uL (4.1-5.3); Red Cell Distribution Width 12.5 % (12.1-15.1); White Blood Count 7.3 10^3/uL (4.0-10.0)
[2021-04-21 14:27] VITALS: BP 163/107; PULSE 80; RESP 22; O2SAT 96
[2021-04-21 14:30] VITALS: BP 131/82; PULSE 91; RESP 18; RESP 24; O2SAT 96
[2021-04-21] MEDS: morphine 4 mg/mL SDV 1 mL IVP (14:30)
[2021-04-21] MEDS: ondansetron 2 mg/ML SDV 2 mL 4 MG IVP (14:30)
[2021-04-21] MEDS: sodium chloride 0.9% 1,000 ML 999 ML IV (14:31)
[2021-04-21 14:36] LABS: Alanine Aminotransferase 35 U/L (0-41); Alkaline Phosphatase 65 IU/L (40-130); Anion Gap 13.8 (5-19); Aspartate Amino Transferase 20 U/L (0-40); Blood Urea Nitrogen 17 mg/dL (6-20); Calcium 9.3 mg/dL (8.5-10.5); Carbon Dioxide 25 mmol/L (22-29); Chloride 99 mmol/L (98-107); Globulin 3.3 g/dL (1.3-4.6); Glomerular Filtration Rate 102.3 mL/min (90-130); Glucose 119 mg/dL (65-115); Lipase 62 U/L (13-60); Osmolality Calculated 281 mOsm/kg (285-295); Potassium 3.8 mmol/L (3.5-5.1); Sodium 134 mmol/L (136-145); Total Bilirubin 0.5 mg/dL (0.15-1.2); Total Protein 7.3 g/dL (6.6-8.7)
[2021-04-21 16:30] VITALS: BP 168/88; PULSE 88; RESP 22; TEMP 36.3; O2SAT 96
[2021-04-21] MEDS: metroNIDAZOLE IV 500 MG/100 ML PREMIX 100 MG IV (17:01)
--- NOTE | 2021-04-21 17:03 | CTR_ITS ---
PROCEDURE INFORMATION: Exam: CT Abdomen And Pelvis With Contrast Exam date and time: 04/21/2021 5:03 PM Age: 51 years old Clinical indication: Patient HX: Abdominal pain and diarrhea x 3days TECHNIQUE: Imaging protocol: Computed tomography of the abdomen and pelvis with contrast. Sagittal and coronal reformatted images were created and reviewed. Radiation optimization: All CT scans at this facility use at least one of these dose optimization techniques: automated exposure control; mA and/or kV adjustment per patient size (includes targeted exams where dose is matched to clinical indication); or iterative reconstruction. Contrast material: OMNI 300; Contrast volume: 95 ml; Contrast route: INTRAVENOUS (IV); COMPARISON: CT abdomen pelvis w con* [id number] 04/21/2021 12:51 AM RADIATION DOSE METRICS: Total DLP (mGy-cm): 1945.99 FINDINGS: Lungs: Visualized lungs are clear. Pleural spaces: No pleural effusion. Heart: Visualized portions of the heart are unremarkable. Liver: The liver is unremarkable. Gallbladder and bile ducts: The gallbladder is unremarkable. No biliary ductal dilatation. Pancreas: The pancreas is unremarkable. No pancreatic ductal dilatation. Spleen: The spleen is unremarkable. Adrenal glands: The right and left adrenal glands are unremarkable. Kidneys and ureters: The right and left kidneys are unremarkable. The right and left ureters are unremarkable. Stomach and bowel: Redemonstration of mild wall thickening and surrounding inflammation/fluid at the terminal ileum as well as mild wall thickening with mild surrounding inflammation of the descending colon. There are air-fluid levels in the small bowel and colon. No dilated bowel loops. Appendix: The appendix is visualized and is unremarkable. No evidence of appendicitis. Intraperitoneal space: No free intraperitoneal air. No ascites. No loculated fluid collections to suggest an abscess. Vasculature: No evidence for aortic aneurysm or aortic dissection. Lymph nodes: No lymphadenopathy. Urinary bladder: The bladder is incompletely filled, which can limit evaluation. No focal abnormality in the bladder however. Contrast in the bladder from a prior CT scan. Reproductive: Stable nonspecific parenchymal calcifications in the prostate gland. Bones/joints: Degenerative changes in the spine and hips. Soft tissues: No acute abnormality in the extra-abdominal soft tissues. CT/CT abdomen pelvis w con* [id number] IMPRESSION: 1. Redemonstration of mild wall thickening and surrounding inflammation/fluid at the terminal ileum as well as mild wall thickening with mild surrounding inflammation of the descending colon. Findings are suspicious for ileocolitis that may be infectious or inflammatory in nature. 2. Incidental/nonacute findings are listed in the report.
[2021-04-21] MEDS: iohexol 300 mg/mL 100 mL Btl IV (17:21)
[2021-04-21 17:30] VITALS: BP 184/88; PULSE 91; RESP 20; O2SAT 96
[2021-04-21] MEDS: sodium chloride 0.9% 500 ML IV (17:34)
[2021-04-21 18:00] VITALS: BP 174/88; PULSE 88; RESP 18; O2SAT 96
[2021-04-21] MEDS: ciprofloxacin 400 MG/200 ML PREMIX 200 MG IV (18:11)
--- NOTE | 2021-04-24 08:37 | PC.NURSE ---
Attempt to make contact with pt, but has not Voicemail set up. Called 2nd number and it was her work number. Left a message to return call.
== END 2021-04-21 20:06 | disposition home or self-care (01) ==
PROVIDERS: Physician Assistant; Emergency Provider Physician Assistant; PCP Nurse Practitioner Family
DX: K52.9 Noninfective gastroenteritis and colitis, unspecified (principal)
CPT/HCPCS: 74177; 80053; 83605; 83690; 85025; 87040; 96365; 96367; 96375; 99284; J0744; J2270; J2405; J7030; J7040; Q9967; S0030

== ENCOUNTER 2021-06-21 21:20 | Emergency (ER) | payer BC, SELFPAY ==
[2021-06-21 21:25] VITALS: BP 162/100; PULSE 67; RESP 18; TEMP 36.6; O2SAT 98
[2021-06-21 21:34] VITALS: BP 149/104; PULSE 61; RESP 22; O2SAT 97
--- NOTE | 2021-06-21 21:40 | XRR_ITS ---
PROCEDURE INFORMATION: Exam: XR Chest Exam date and time: 06/21/2021 9:54 PM Age: 51 years old Clinical indication: Pain; Right-sided; Patient HX: C/O R sided cp w SOB; Additional info: Chest pain TECHNIQUE: Imaging protocol: XR of the chest. Views: 1 view. COMPARISON: CR Chest 1 [place] [id number] 07/17/2018 3:13 PM FINDINGS: Lungs: Unremarkable. No consolidation. Pleural spaces: Unremarkable. No pleural effusion. No pneumothorax. Heart/Mediastinum: Unremarkable. No cardiomegaly. Bones/joints: Hardware in the right clavicle with distal resection. XR/XR chest 1V portable [id number] IMPRESSION: No acute finding.
--- NOTE | 2021-06-21 21:41 | ECG_ITS ---
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 Measurements Intervals [place] Rate: 54 P: 29 W[place]: 141 QRS: -19 QRSD: 125 T: -10 QT: 462 QTc: 440 Interpretive Statements SINUS BRADYCARDIA POSSIBLE RIGHT VENTRICULAR CONDUCTION DELAY [RSR (QR) IN V1/V2] MINIMAL VOLTAGE CRITERIA FOR LVH, CONSIDER NORMAL VARIANT [MEETS CRITERIA IN ONE OF: R(aVL), S(V1), R(V5), R(V5/V6)+S(V1)] Compared to ECG 06/21/2021 21:34:53 Sinus rhythm no longer present Electronically Signed On 06-22-2021 21:33:43 CDT by Shaka Thakkar M.D. [email or web address]
[2021-06-21 21:58] VITALS: BP 132/80; PULSE 121; RESP 22; O2SAT 100
[2021-06-21 22:01] LABS: Basophils # 0.1 10^3/uL (0.0-0.1); Eosinophils # 0.3 10^3/uL (0.0-0.8); Eosinophils % 4.7 %; Hematocrit 40.3 % (42.0-52.0); Lymphocytes # 2.8 10^3/uL (0.8-4.8); Mean Corpuscular HGB Conc 34.7 g/dL (30.0-36.0); Mean Corpuscular Hemoglobin 30.6 pg (28.0-34.0); Mean Platelet Volume 11.3 fL (7.4-10.4); Monocytes # 0.5 10^3/uL (0.2-0.9); Monocytes % 7.4 %; Neutrophils # 3.13 10^3/uL (1.8-7.7); Neutrophils % 45.6 %; Nucleated Red Blood Cells % 0 %; Platelet Count 241 10^3/cmm (130-400); Red Blood Count 4.58 10^6/uL (4.1-5.3); Red Cell Distribution Width 12.5 % (12.1-15.1); White Blood Count 6.9 10^3/uL (4.0-10.0)
--- NOTE | 2021-06-21 22:12 | USR_ITS ---
PROCEDURE INFORMATION: Exam: US Abdomen, Limited; Right Upper Quadrant Exam date and time: 06/21/2021 10:23 PM Age: 51 years old Clinical indication: Abdominal pain; Additional info: R abd/chest pain TECHNIQUE: Imaging protocol: US abdomen. Real time ultrasound with image documentation. Limited exam focused on the right upper quadrant. COMPARISON: CT abdomen pelvis w con* [id number] 04/21/2021 5:20 PM FINDINGS: Liver: Normal. No masses. Gallbladder: The gallbladder is partially contracted with a wall thickness of 3.2 mm. No visible gallstones. Biliary ducts: CBD 6.9 mm. Pancreas: Not imaged. Right kidney: Not imaged. Intraperitoneal space: No ascites. US/US gall bladder [id number] IMPRESSION: 1. Minimal gallbladder wall thickening is most likely related to partial contraction. No visible gallstones.
[2021-06-21 22:19] LABS: Alanine Aminotransferase 28 U/L (0-41); Albumin Level 4.2 g/dL (3.5-5.2); Alkaline Phosphatase 53 IU/L (40-130); Aspartate Amino Transferase 19 U/L (0-40); Blood Urea Nitrogen 18 mg/dL (6-20); Calcium 9.3 mg/dL (8.5-10.5); Carbon Dioxide 26 mmol/L (22-29); Chloride 103 mmol/L (98-107); Globulin 2.7 g/dL (1.3-4.6); Glomerular Filtration Rate 64.1 mL/min (90-130); Glucose 98 mg/dL (65-115); Lipase 60 U/L (13-60); Osmolality Calculated 290 mOsm/kg (285-295); Sodium 139 mmol/L (136-145); Total Bilirubin 0.2 mg/dL (0.15-1.2); Total Protein 6.9 g/dL (6.6-8.7)
[2021-06-21 22:20] LABS: Troponin(5th) Baseline 6 ng/L (0-15)
[2021-06-21 22:24] VITALS: RESP 22; O2SAT 97
[2021-06-21] MEDS: fentaNYL 50 mcg/mL INJ 2mL 100 MCG IVP (22:24)
[2021-06-21] MEDS: sodium chloride 0.9% 1,000 ML 999 ML IV (22:24)
[2021-06-21] MEDS: ondansetron 2 mg/ML SDV 2 mL 4 MG IVP (22:25)
[2021-06-21 22:28] VITALS: BP 131/74; PULSE 107; RESP 18; O2SAT 100
[2021-06-21 22:33] LABS: D Dimer <= 0.27 ug/mIFEU (0-0.59)
--- NOTE | 2021-06-21 22:59 | ED_ITS ---
HPI - Chest Pain General: Chief Complaint: Chest Pain Stated Complaint: cp, sob Time Seen by Provider: 06/21/21 21:37 Source: patient and family History of Present Illness: 51-year-old male with no prior history of coronary disease. He presents with a right-sided chest discomfort spreading into his right upper quadrant and radiating into his shoulder and his right arm. He has not had pain like this before. He denies fever. He has some nausea. No vom iting. No diarrhea. He has been mildly short of breath with it. No history of belly surgery. He does note a decently long car trip last week to [place] with MD complaint: chest pain Onset (ago): hour(s) Pain location: right chest Pain radiation: right arm and back Severity: moderate Relieving factors: nothing Exacerbating factors: nothing Context: recent travel Associated symptoms: Reports abdominal pain, dyspnea and nausea; Deny fever(s), leg edema, palpitations or vomiting Risk Factors: Coronary artery disease risk factors: hypertension Review of Systems Const: Denies: fever(s) Eyes: Denies: change in vision ENMT: Denies: throat pain Card: Reports: chest pain; Denies: palpitations Resp: Reports: dyspnea and non-productive cough (Mild chronic); Denies: productive cough GI: Reports: abdominal pain and nausea; Denies: vomiting PFSH ED PFSH: Medical History No pertinent family history Surgical History No pertinent past surgical history Social History Smoking and tobacco status: never smoked Alcohol intake: current Alcohol intake frequency: holidays/special occasions only Physical Exam 2 Const: GENERAL APPEARANCE: cooperative and ill appearing (mildly); not frail appearing HENMT: COMMON NORMALS: normocephalic, atraumatic and Normal external nose present HEAD & SCALP: normocephalic and atraumatic NOSE: Normal external nose present Eye: COMMON NORMALS: Equal, round and reactive pupils present and EOMs intact bilaterally PUPIL: Yes Equal, round and reactive pupils present Neck/C-Spine: GENERAL: Yes trachea midline Chest: COMMONS NORMALS: normal inspection of the chest CHEST: Yes Symmetrical chest wall rise and Yes tenderness Resp: COMMON NORMALS: normal respiratory effort, No use of accessory muscles and clear to auscultation bilaterally AUSCULTATION: clear to auscultation bilaterally Cardio: COMMON NORMALS: regular rate, regular rhythm and Peripheral pulses 2+ throughout RATE: regular rate RHYTHM: regular rhythm PERIPHERAL PULSES: Peripheral pulses 2+ throughout GI: COMMON NORMALS: Normal to inspection, nondistended, normoactive bowel sounds present and Soft to palpation PALPATION: Yes Soft to palpation and Yes Tenderness to palpation present (GI) Details: RUQ (mild) : COMMON NORMALS: Yes no CVA tenderness BLADDER/KIDNEY EXAM: Yes no CVA tenderness Back/Pelvis: COMMON NORMALS: no CVA tenderness Neuro: MIHAI COMA SCALE: document GCS findings Center coma scale eye opening: Spontaneous Mihai coma scale verbal response: Orientated Mihai coma scale motor response: Obey commands Center coma scale total score: 15 Psych: COMMON NORMALS: cooperative Course Vital Signs: Vital signs: Vital Signs Temperature 97.8 F 06/21/21 21:25 Pulse Rate 59 L 06/21/21 23:33 Respiratory Rate 14 06/21/21 23:33 Blood Pressure 130/75 06/21/21 23:33 Pulse Oximetry 96 06/21/21 23:33 MDM - Chest Pain Medical Decision Making Right-sided chest and right upper quadrant abdominal pain. He is improved after fentanyl, Zofran. CBC is normal. BMP is normal. Liver enzymes are normal. D- dimer is nondetectable. Troponin is 6 and remains so at 2 hours. EKG shows a normal sinus rhythm with normal intervals, and no acute ST changes. Urinalysis is free of hematuria. Gallbladder ultrasound shows a minimal wall thickening likely related to contracture, no evidence of cholecystitis. Patient's pain is suspicious for biliary colic. This was explained to him. Outpatient stress testing will be ordered for the patient, as he had chest pain as well and has not had one. Lab Data : 06/21/21 21:55 06/21/21 21:55 Radiology Impressions Chest X-Ray 06/21/21 21:40 IMPRESSION: No acute finding. Gallbladder Ultrasound 06/21/21 22:12 IMPRESSION: 1. Minimal gallbladder wall thickening is most likely related to partial contraction. No visible gallstones. Laboratory Results WBC 6.9 10^3/uL (4.0-10.0) 06/21/21 21:55 RBC 4.58 10^6/uL (4.1-5.3) 06/21/21 21:55 Hgb 14.0 g/dL (11.7-16.6) 06/21/21 21:55 Hct 40.3 % (42.0-52.0) L 06/21/21 21:55 MCV 88.0 fl (80-94) 06/21/21 21:55 MCH 30.6 pg (28.0-34.0) 06/21/21 21:55 MCHC 34.7 g/dL (30.0-36.0) 06/21/21 21:55 RDW 12.5 % (12.1-15.1) 06/21/21 21:55 Plt Count 241 10^3/cmm (130-400) 06/21/21 21:55 MPV 11.3 fL (7.4-10.4) H 06/21/21 21:55 Neut % (Auto) 45.6 % 06/21/21 21:55 Lymph % (Auto) 41.0 % 06/21/21 21:55 Rowan % (Auto) 7.4 % 06/21/21 21:55 Eos % (Auto) 4.7 % 06/21/21 21:55 Baso % (Auto) 1.0 % 06/21/21 21:55 Neut # (Auto) 3.13 10^3/uL (1.8-7.7) 06/21/21 21:55 Lymph # (Auto) 2.8 10^3/uL (0.8-4.8) 06/21/21 21:55 Rowan # (Auto) 0.5 10^3/uL (0.2-0.9) 06/21/21 21:55 Eos # (Auto) 0.3 10^3/uL (0.0-0.8) 06/21/21 21:55 Baso # (Auto) 0.1 10^3/uL (0.0-0.1) 06/21/21 21:55 Nucleated RBC % (auto) 0 % 06/21/21 21:55 Nucleated RBCs # 0.0 /100WBC 06/21/21 21:55 D-Dimer <= 0.27 ug/mIFEU (0-0.59) 06/21/21 21:55 Sodium 139 mmol/L (136-145) 06/21/21 21:55 Potassium 4.0 mmol/L (3.5-5.1) 06/21/21 21:55 Chloride 103 mmol/L (98-107) 06/21/21 21:55 Carbon Dioxide 26 mmol/L (22-29) 06/21/21 21:55 Anion Gap 14.0 (5-19) 06/21/21 21:55 BUN 18 mg/dL (6-20) 06/21/21 21:55 Creatinine 1.2 mg/dL (0.7-1.2) 06/21/21 21:55 GFR Calculation 64.1 mL/min (90-130) L 06/21/21 21:55 Glucose 98 mg/dL (65-115) 06/21/21 21:55 Calculated Osmolality 290 mOsm/kg (285-295) 06/21/21 21:55 Calcium 9.3 mg/dL (8.5-10.5) 06/21/21 21:55 Total Bilirubin 0.2 mg/dL (0.15-1.2) 06/21/21 21:55 AST 19 U/L (0-40) 06/21/21 21:55 ALT 28 U/L (0-41) 06/21/21 21:55 Alkaline Phosphatase 53 IU/L (40-130) 06/21/21 21:55 Troponin T Baseline 6 ng/L (0-15) 06/21/21 21:55 Troponin T 120 Minute 6.00 ng/L (0-15) 06/21/21 23:48 Delta Troponin T Not Reportable 06/21/21 23:48 Total Protein 6.9 g/dL (6.6-8.7) 06/21/21 21:55 Albumin 4.2 g/dL (3.5-5.2) 06/21/21 21:55 Globulin 2.7 g/dL (1.3-4.6) 06/21/21 21:55 Lipase 60 U/L (13-60) 06/21/21 21:55 Urine Color Yellow (Yellow) 06/21/21 23:27 Urine Appearance Hazy (CLEAR) A 06/21/21 23:27 Urine pH 7 (5-7) 06/21/21 23:27 Ur Specific [place] 1.015 (1.005-1.030) 06/21/21 23:27 Urine Protein Neg (Negative) 06/21/21 23:27 Urine Glucose (UA) Norm (Normal) 06/21/21 23:27 Urine Ketones Negative (Negative) 06/21/21 23:27 Urine Blood Neg (Negative) 06/21/21 23:27 Urine Nitrate Negative (Negative) 06/21/21 23:27 Urine Bilirubin Neg (Negative) 06/21/21 23:27 Urine Urobilinogen Norm mg/dL (Negative) 06/21/21 23:27 Ur Leukocyte Esterase Negative (Negative) 06/21/21 23:27 Urine RBC 0-4 /hpf (0-2) H 06/21/21 23:27 Urine WBC 0-4 /hpf (0-5) H 06/21/21 23:27 Ur Squamous Epith Cells 0-4 /hpf (0-5) H 06/21/21 23:27 Amorphous Sediment 4+ /hpf 06/21/21 23:27 Urine Bacteria Trace /hpf (NONE) 06/21/21 23:27 Discharge Plan Discharge Patient Disposition: Home Clinical Impression: Chest pain, Biliary colic Condition: Stable Prescriptions: New hydrocodone-acetaminophen 5-325 mg tablet 1 tab PO Q8H PRN (Reason: pain) Qty: 7 0RF ketorolac 10 mg tablet 10 mg PO TID PRN (Reason: pain) Qty: 10 0RF ondansetron 4 mg film 4 mg PO DAILY PRN (Reason: nausea and vomiting) Qty: 10 0RF No Action valsartan 80 mg tablet 80 mg PO DAILY 0RF buspirone 5 mg tablet 5 mg PO TID PRN0RF venlafaxine 25 mg tablet 25 mg PO DAILY 0RF albuterol sulfate [ProAir HFA] 90 mcg/actuation HFA aerosol inhaler 2 puff inhalation Q6H PRN0RF Flovent HFA 44 mcg/actuation HFA aerosol inhaler 2 puff inhalation DAILY 0RF Rx Instructions: administer with spacer Decadron 6 mg tablet 6 mg PO DAILY Qty: 7 0RF tramadol 50 mg tablet 50 mg PO TID PRN (Reason: pain) Qty: 7 0RF Cipro 500 mg tablet 500 mg PO Q12H Qty: 14 0RF Discharge Orders: Discharge ED (Routine); Ordered 06/22/21 Ordered By: Milo Santos Referrals: Suyapa Garcias NP [Primary Care Provider] - 4-7 days Patient Instructions: Chest Pain (ED), Biliary Colic (ED), Opioid Safety Activity Restrictions/Additional Instructions: Return for return of chest pain, worsening pain despite treatment, shortness of breath, fever greater than 100, yellowing of the eyes or skin, vomiting liquids or medications, any other concerning symptoms. A case management order has been placed for an outpatient stress test for you. 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
[2021-06-21 23:33] VITALS: BP 130/75; PULSE 59; RESP 14; O2SAT 96
--- NOTE | 2021-06-21 23:41 | ECG_ITS ---
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 Measurements Intervals [place] Rate: 60 P: 30 CA: 141 QRS: -18 QRSD: 125 T: 3 QT: 432 QTc: 435 Interpretive Statements SINUS RHYTHM POSSIBLE RIGHT VENTRICULAR CONDUCTION DELAY [RSR (QR) IN V1/V2] MINIMAL VOLTAGE CRITERIA FOR LVH, CONSIDER NORMAL VARIANT [MEETS CRITERIA IN ONE OF: R(aVL), S(V1), R(V5), R(V5/V6)+S(V1)] Compared to ECG 07/17/2018 21:42:41 No significant changes Electronically Signed On 06-21-2021 22:51:14 CDT by Shaka Thakkar M.D. [id number]
[2021-06-21 23:42] LABS: Add Urine Culture? No; Add Urine Microscopic? YES; Amorphous Sediment Urine 4+ /hpf; Bacteria Urine TRACE /hpf; Bilirubin Urine Neg (Negative); Blood Urine Neg (Negative); Glucose Urine UA Norm (Normal); Ketones Urine Negative (Negative); Leukocyte Esterase Urine Negative (Negative); Nitrate Urine Negative (Negative); Protein Urine Neg (Negative); RBC Urine 0-4 /hpf (0-2); Specific Gravity, Urine 1.015 (1.005-1.030); Squamous Epithelial Cell Urine 0-4 /hpf (0-5); Urine Appearance Hazy (CLEAR); Urine Color Yellow (Yellow); Urobilinogen Urine Norm (Negative); WBC Urine 0-4 /hpf (0-5); pH Urine 7 (5-7)
[2021-06-22 01:15] VITALS: BP 123/80; PULSE 57; RESP 14; O2SAT 97
[2021-06-22] MEDS: ketorolac 30 mg/mL INJ 15 MG IVP (01:16)
[2021-06-22 01:30] VITALS: BP 123/80; PULSE 57; RESP 14; O2SAT 97
--- NOTE | 2021-06-22 14:00 | DCPLANNER ---
Addendum entered by Tia Obrien 10/30/21 14:07: Patient had a stress test scheduled - patient did attend appointment. Original Note: manager export had message to schedule an out patient stress test for patient. manager export spoke with patient to confirm that patient wanted to have the test ordered and to confirm who patient sees for primary care. Patient stated that he wanted to have the stress test ordered and that patient sees Suyapa Garcias for primary care. manager export faxed signed order to centralized scheduling, who will call patient with appointment information.
== END 2021-06-22 01:33 | disposition home or self-care (01) ==
PROVIDERS: Emergency Medicine; Emergency Provider Emergency Medicine; PCP Nurse Practitioner Family
DX: R07.9 Chest pain, unspecified (principal)
CPT/HCPCS: 71045; 76705; 80053; 81001; 83690; 84484; 85025; 85378; 93005; 96361; 96374; 96375; 99285; J1885; J2405; J3010; J7030

== ENCOUNTER 2021-08-09 19:25 | Emergency (ER) | payer BC, SELFPAY ==
[2021-08-09 20:50] VITALS: BP 146/104; PULSE 72; RESP 20; TEMP 37.4; O2SAT 97; BMI 34.7
[2021-08-09 21:51] LABS: SARS Covid-2 Antigen Positive (Negative)
--- NOTE | 2021-08-09 22:47 | XRR_ITS ---
PROCEDURE INFORMATION: Exam: XR Chest Exam date and time: 08/09/2021 11:03 PM Age: 51 years old Clinical indication: Cough and fever; Additional info: Fever and cough TECHNIQUE: Imaging protocol: Radiologic exam of the chest. Views: 1 view. COMPARISON: CR XR chest 1V portable [id number] 06/21/2021 9:54 PM FINDINGS: Lungs: Unremarkable. No consolidation. Pleural spaces: Unremarkable. No pleural effusion. No pneumothorax. Heart/Mediastinum: Unremarkable. No cardiomegaly. Bones/joints: Status post open reduction internal fixation of a healed fracture of the right clavicle. XR/XR chest 1V portable [id number] IMPRESSION: There are no acute chest findings.
--- NOTE | 2021-08-10 00:02 | ED_ITS ---
HPI - URI/Sore Throat General: Chief Complaint: Fever Stated Complaint: fever/sinus issues/sneezing/loss of taste Time Seen by Provider: 08/09/21 22:48 History of Present Illness: Patient is a 51-year-old male comes to the ED with COVID symptoms. His symptoms started yesterday. He has had nasal congestion and drainage, fever, body aches and a mild cough. Cough is dry nonproductive. Denies any chest pain, shortness of breath, abdominal pain, nausea/vomiting, bladder or bowel symptoms. Associated symptoms: Reports fever(s) and nasal congestion; Deny abdominal pain, chills, chest pain, diarrhea, headache(s), nausea or vomiting Review of Systems Const: Reports: fever(s) and body aches; Denies: chills or fatigue Eyes: Denies: change in vision or eye discomfort ENMT: Reports: nasal discharge and nasal congestion; Denies: throat pain or odynophagia Card: Denies: chest pain, palpitations, edema, swelling of feet/ankles, dyspnea on exertion or orthopnea Resp: Reports: non-productive cough; Denies: dyspnea or productive cough GI: Denies: abdominal pain, nausea, vomiting, diarrhea, constipation or hematochezia : Denies: flank pain, difficulty urinating, dysuria or hematuria Musc: Denies: neck pain, back pain or extremity swelling Skin/Breast: Denies: rash or new lesions Neuro: Denies: headache(s), numbness in extremities or weakness in extremities PFS ED PFSH: Medical History No pertinent family history Surgical History No pertinent past surgical history Social History Smoking and tobacco status: never smoked Alcohol intake: current Alcohol intake frequency: holidays/special occasions only Physical Exam Const: COMMON NORMALS: no acute distress, patient oriented x3, healthy appearing and alert GENERAL APPEARANCE: cooperative and comfortable HENMT: COMMON NORMALS: normocephalic HEAD & SCALP: normocephalic MOUTH: Normal oral and palatal mucosa present THROAT: posterior oropharynx normal and uvula midline Eye: COMMON NORMALS: Equal, round and reactive pupils present and conjunctivae normal CONJUNCTIVA: Yes conjunctivae normal PUPIL: Yes Equal, round and reactive pupils present Neck/C-Spine: COMMON NORMALS: supple GENERAL: Yes normal visual inspection Resp: COMMON NORMALS: normal respiratory effort, No retractions, No use of accessory muscles and clear to auscultation bilaterally AUSCULTATION: clear to auscultation bilaterally Cardio: COMMON NORMALS: regular rate, regular rhythm, S1 normal heart sound present, S2 normal heart sound present, No gallops present (Cardio), No clicks present (Cardio), No murmurs present (Cardio) and Peripheral pulses 2+ throughout RATE: regular rate RHYTHM: regular rhythm HEART SOUNDS: S1 normal heart sound present and S2 normal heart sound present PERIPHERAL PULSES: Peripheral pulses 2+ throughout GI: COMMON NORMALS: Normal to inspection, nondistended, normoactive bowel sounds present, Soft to palpation, non-tender and no masses PALPATION: Yes Soft to palpation : COMMON NORMALS: Yes no CVA tenderness BLADDER/KIDNEY EXAM: Yes no CVA tenderness Back/Pelvis: COMMON NORMALS: no CVA tenderness Extremity: COMMON NORMALS: normal to inspection Neuro: COMMON NORMALS: patient oriented x3 and moves all extremities SENSORIUM/ORIENTATION: Yes alert Skin: GENERAL SKIN EXAM: dry skin Course Vital Signs: Vital signs: Vital Signs Temperature 98.3 F 08/10/21 01:01 Pulse Rate 90 08/10/21 01:01 Respiratory Rate 16 08/10/21 01:01 Blood Pressure 146/104 08/09/21 20:50 Pulse Oximetry 95 08/10/21 01:01 MDM - URI/Sore Throat Medical Decision Making Patient is a 51-year-old male comes to the ED with upper respiratory symptoms. He has had a cough, fever, body aches, nasal congestion drainage that started yesterday. Vitals are stable and patient's O2 saturations 97% on room air.Patient appears in no acute distress or pain. The rest of exam is benign. COVID test was positive. Chest x-ray showed no acute findings. Patient was diagnosed with COVID-19 and was discharged home with a prescription for steroid. Told to follow-up with his PCP in the next week for reevaluation. Return ED precautions given. Patient's doctor appointment. Lab Data Radiology Impressions Chest X-Ray 08/09/21 22:47 IMPRESSION: There are no acute chest findings. Laboratory Results SARS-CoV-2 Ag (Rapid) Positive (Negative) H 08/09/21 21:20 Discharge Plan Discharge Patient Disposition: Home Clinical Impression: COVID-19 Condition: Stable Prescriptions: New prednisone 20 mg tablet 20 mg PO BID 5 Days Qty: 10 0RF No Action valsartan 80 mg tablet 80 mg PO DAILY 0RF buspirone 5 mg tablet 5 mg PO TID PRN0RF venlafaxine 25 mg tablet 25 mg PO DAILY 0RF albuterol sulfate [ProAir HFA] 90 mcg/actuation HFA aerosol inhaler 2 puff inhalation Q6H PRN0RF Flovent HFA 44 mcg/actuation HFA aerosol inhaler 2 puff inhalation DAILY 0RF Rx Instructions: administer with spacer Decadron 6 mg tablet 6 mg PO DAILY Qty: 7 0RF tramadol 50 mg tablet 50 mg PO TID PRN (Reason: pain) Qty: 7 0RF Cipro 500 mg tablet 500 mg PO Q12H Qty: 14 0RF hydrocodone-acetaminophen 5-325 mg tablet 1 tab PO Q8H PRN (Reason: pain) Qty: 7 0RF ketorolac 10 mg tablet 10 mg PO TID PRN (Reason: pain) Qty: 10 0RF ondansetron 4 mg film 4 mg PO DAILY PRN (Reason: nausea and vomiting) Qty: 10 0RF Discharge Orders: Discharge ED (Routine); Ordered 08/10/21 Ordered By: Lee Gomez Referrals: Suyapa Garcias NP [Primary Care Provider] - Discharge Diet: Regular Discharge Activity: Increase activity as tolerated Patient Instructions: COVID-19 (Coronavirus Disease 2019) (ED) Activity Restrictions/Additional Instructions: Follow-up with medical provider as directed in the next 5-7 days for reevaluation. Take medications as prescribed. Return to the ER or your medical provider if condition worsens. Please read and understand discharge instructions. Thank you for choosing [facility] for your healthcare needs today. Please realize this is an emergency room and that we are providing you with a medical screening exam and this may not be complete and all inclusive of all the testing and or work up that you may need to determine your ailment or severity of your illness. It is very important that you follow up as instructed or that you return to the Emergency Department should you have concerns or if your condition changes or worsens in any way. 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
[2021-08-10 00:56] VITALS: PULSE 90; RESP 16; TEMP 36.8; O2SAT 95
[2021-08-10 01:01] VITALS: PULSE 90; RESP 16; TEMP 36.8; O2SAT 95
== END 2021-08-10 01:04 | disposition home or self-care (01) ==
PROVIDERS: Emergency Medicine; Emergency Provider Physician Assistant; PCP Nurse Practitioner Family
DX: U07.1 COVID-19 (principal)
CPT/HCPCS: 71045; 87426; 99283

== ENCOUNTER 2021-09-10 07:15 | Day surgery (SDC) | payer BC, SELFPAY ==
[2021-09-08 09:38] VITALS: BMI 32.5
[2021-09-10 07:55] VITALS: BP 121/84; PULSE 61; RESP 18; TEMP 36.3; O2SAT 96
[2021-09-10] MEDS: sodium chloride 0.9% 1,000 ML 30 ML IV (07:56)
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
--- NOTE | 2021-09-10 09:00 | P.HP_ITS ---
Providers/Chief Complaint Primary Care Provider: Suyapa Garcias NP Chief Complaint: Colon cancer screening History of Present Illness Sugar Fagan Jr is a 51 year old male who presents for his first screening colonoscopy. He has no complaints or family history of colon cancer Review of Systems General: Reports: 10 or more systems reviewed and unremarkable except in HPI and below Medications/Allergies Home Medications Medication Instructions Recorded Confirmed Last Taken Type albuterol sulfate 90 mcg/actuation 2 puff inhalation Q6H PRN 10/06/20 09/08/21 Unknown History aerosol inhaler (ProAir HFA) Shortness Of Breath fluticasone furoate 100 1 inh inhalation DAILY 09/10/21 09/10/21 09/10/21 History mcg-vilanterol 25 mcg/dose inhalation powder (Breo Ellipta) valsartan 160 mg tablet 160 mg PO DAILY 09/10/21 09/10/21 09/09/21 History Allergies Allergy/AdvReac Type Severity Reaction Status Date / Time Penicillins Allergy Intermediate rash Verified 09/10/21 07:36 Sulfa (Sulfonamide Allergy Intermediate rash Verified 09/10/21 07:36 Antibiotics) PFSH Acute PFSH: Medical History No pertinent family history Surgical History No pertinent past surgical history Social History Smoking and tobacco status: never smoked Alcohol intake: current Alcohol intake frequency: holidays/special occasions only Vitals/I&O/Wt Last Vital Signs Temp 97.4 F L 09/10/21 07:55 Pulse 61 09/10/21 07:55 Resp 18 09/10/21 07:55 BP 121/84 09/10/21 07:55 Pulse Ox 96 09/10/21 07:55 O2 Del Method 09/10/21 07:55 Weight last 48 hrs Weight 220 lb Physical Exam Narrative: General : Patient is well developed , no acute distress, oriented x3 Head : Normal cephalic, a-traumatic. Ears : Pinnae and external canal are normal. Hearing is normal. Eyes : PERRLA, Sclera and injection are normal. No conjunctival discharge. Nose : Mucous membranes are without erythema. Throat : buccal mucosa is normal, gums are without significant recession or hypertrophy. Lungs : Equal chest rise bilaterally, no use of accessory muscles, trachea is midline. Cor : Rate and rhythm are normal. Abdomen : Soft, ND, NT, no g/r/m Extremities : No edema, no cyanosis or clubbing, dorsalis pedis pulses are present bilaterally, non-tender to palpation of calves. Upper extremities are normal bilaterally. Back : non-tender to palpation, no CVA tenderness. Neuro : CN II - XII intact, Upper and lower extremities have equal and full strength A&P Assessment and plan (1) Colon cancer screening: Status: Acute Plan Colonoscopy The risks and benefits of the procedure, including bleeding, infection, intestinal perforation requiring surgery, missed lesion, or explained to the patient. He is understanding of the risks and wishes to proceed. 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
[2021-09-10 09:24] VITALS: BP 138/72; PULSE 73; RESP 18; TEMP 36.5; O2SAT 95
[2021-09-10 09:36] VITALS: BP 118/84; PULSE 69; RESP 18; TEMP 36.5; O2SAT 95
--- NOTE | 2021-09-10 12:47 | ANE.PACU2 ---
Inpatient post-anesthesia follow up: Airway intact: Yes Vital signs: Temperature 97.7 F Pulse Rate 69 Respiratory Rate 18 Blood Pressure 118/84 Pulse Oximetry 95 Oxygen Delivery Me thod Room Air Oxygen Flow Rate Fraction of Inspir ed Oxygen Hydration adequate: Yes Nausea and vomiting: No Pain level: 1 Mental status: Baseline
== END 2021-09-10 09:53 | disposition home or self-care (01) ==
PROVIDERS: PCP Nurse Practitioner Family; Visit Provider Surgery
PROC: 0DJD8ZZ Inspection of Lower Intestinal Tract, Via Natural or Artificial Opening Endoscopic (ICD-10-PCS; CPT 45378; principal; 2021-09-10 09:00)
DX: Z12.11 Encounter for screening for malignant neoplasm of colon (principal); I10 Essential (primary) hypertension
CPT/HCPCS: 45378; J2704; J7030

== ENCOUNTER 2021-09-29 06:56 | Outpatient (CLI) | payer BC, SELFPAY ==
--- NOTE | 2021-09-29 | ECG_ITS ---
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 Interpretive Statements NAME OF STUDY: LEXISCAN SESTAMIBI STRESS TEST INDICATION: [Chest Pain] Procedure: At the baseline, the blood pressure was 123/86 mmHg with a heart rate of 56 bpm. The electrocardiogram showed normal sinus rhythm, normal axis with normal ST and T's. The Lexiscan was infused over a period of 20 seconds. A total of 0.4 mg of Lexiscan was infused. The stress phase was continued for a total of 5 minutes. Heart rate was at the end of stress phase was 82 bpm and a blood pressure of 131/93 mmHg. The EKG at the peak infusion revealed since normal sinus rhythm with no significant ST-T wave changes. Sestamibi was injected 20 seconds after the Lexiscan infusion. Blood pressure at the end of recovery phase was 138/93 mmHg with a heart rate of 76 bpm. Conclusion: 1. Normal EKG response to Lexiscan infusion 2. No Lexiscan induced chest pain or cardiac arrhythmia. 3. Normal blood pressure and heart rate response. 4. Sestamibi/sestamibi perfusion scan pending; see separate report. Electronically Signed On 10-05-2021 0:14:48 CDT by Hunter Mixon M.D. [id number]
--- NOTE | 2021-09-29 07:18 | NMCV_ITS ---
NM sherri perf SPECT r/s* [id number] Sugar Fagan Age: 51 Gender: M : 1970 Exam Date: 09/29/2021 08:07 Ordering Phys: Suyapa Garcias NP Technologist: Phill Hoyos Exam [facility]: [facility] Indications: CHEST PAIN STRESS TEST Please [facility] for [facility] IMAGE PROTOCOL Rest/Stress 1 Lexiscan Day Radiopharmaceutical Dose (mCi) Administration Site Administered by Rest: Tc-99m 10.7 IV Jaiden Colbert, INDUSTRY SEGMENT SPECIALIST Sestamibi Stress:Tc-99m 32.6 IV Jaiden Colbert, INDUSTRY SEGMENT SPECIALIST Sestamibi Rest: 29-Sep-2021 60 Discovery 630 Stress: 29-Sep-2021 30 Discovery 630 0.4mg Lexiscan. Images obtained in supine and prone position. SPECT RESULTS Technical Quality: Excellent Raw Data Analysis: Normal Image Corrections: No attenuation or motion correction applied Summed Stress Score: 2 Summed Rest Score: 0 Summed Difference Score: 2 PERFUSION FINDINGS There is a small in size reversible perfusion defect seen in the apical wall. This is consistent with small area of ischemia in LAD territory. FUNCTIONAL RESULTS (calculated via Gated SPECT) Stress Image LV EF (%): 61 Stress EDV (mL):114 TID: 1.1 Stress ESV (mL):44 FUNCTIONAL FINDINGS: There is normal left ventricular systolic function. IMPRESSIONS 1. Abnormal myocardial perfusion imaging with small sized area of ischemia seen in LAD territory. 2. LV systolic function is normal Hunter Mixon MD (Electronically Signed) Final Date: 29 September 2021 12:07 S
[2021-09-29 07:39] VITALS: BMI 33.0
[2021-09-29 08:48] VITALS: BP 136/89; PULSE 80
[2021-09-29] MEDS: regadenoson 0.4 Mg/5 ml Syringe IVP (08:55)
== END 2021-09-29 06:57 | disposition home or self-care (01) ==
LOC: CDL 06:57
PROVIDERS: PCP Nurse Practitioner Family; Visit Provider Nurse Practitioner Family
DX: R07.9 Chest pain, unspecified (principal)
CPT/HCPCS: 78452; 93017; A9500; J2785

== ENCOUNTER 2021-11-11 15:30 | Outpatient (CLI) | payer BC, SELFPAY | END 2021-11-11 15:31 | disposition home or self-care (01) | LOC: SLEEP 11-12 12:31 | PROVIDERS: PCP Nurse Practitioner Family; Visit Provider Family Medicine | DX: G47.10 Hypersomnia, unspecified (principal) | CPT/HCPCS: G0399 ==

== ENCOUNTER 2021-11-29 13:55 | Emergency (ER) | payer BC, SELFPAY ==
[2021-11-29] VITALS (27 sets, daily range): BP systolic 120–141; BP diastolic 81–89; PULSE 49–56; RESP 13–22; TEMP 36.7; O2SAT 93–98; BMI 33.2
--- NOTE | 2021-11-29 13:59 | ECG_ITS ---
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 Measurements Intervals [place] Rate: 50 P: 22 OR: 142 QRS: -15 QRSD: 125 T: -2 QT: 467 QTc: 426 Interpretive Statements SINUS BRADYCARDIA POSSIBLE RIGHT VENTRICULAR CONDUCTION DELAY [RSR (QR) IN V1/V2] MODERATE VOLTAGE CRITERIA FOR LVH, CONSIDER NORMAL VARIANT [MEETS CRITERIA IN ONE OF: R(aVL), S(V1), R(V5), R(V5/V6)+S(V1)] Compared to ECG 11/29/2021 14:04:15 Intraventricular conduction delay no longer present Electronically Signed On 11-29-2021 21:57:25 CDT by Hunter Mixon M.D. [id number]
--- NOTE | 2021-11-29 13:59 | XRR_ITS ---
PROCEDURE INFORMATION: Exam: XR Chest Exam date and time: 11/29/2021 2:13 PM Age: 51 years old Clinical indication: Pain; Chest pressure; Additional info: Chest pain TECHNIQUE: Imaging protocol: Radiologic exam of the chest. Views: 1 view. COMPARISON: CR (CHEST, ) 08/09/2021 11:03 PM FINDINGS: Lungs: Unremarkable. No consolidation. Pleural spaces: Unremarkable. No pleural effusion. No pneumothorax. Heart/Mediastinum: Unremarkable. No cardiomegaly. Bones/joints: Postoperative changes of the right clavicle are stable compared with prior x-ray. No acute fracture. XR/XR chest 1V portable [id number] IMPRESSION: No acute findings
--- NOTE | 2021-11-29 14:04 | ECG_ITS ---
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 Measurements Intervals [place] Rate: 49 P: 22 WI: 146 QRS: -16 QRSD: 112 T: 1 QT: 475 QTc: 430 Interpretive Statements SINUS BRADYCARDIA MODERATE INTRAVENTRICULAR CONDUCTION DELAY [110+ ms QRS DURATION] MODERATE VOLTAGE CRITERIA FOR LVH, CONSIDER NORMAL VARIANT [MEETS CRITERIA IN ONE OF: R(aVL), S(V1), R(V5), R(V5/V6)+S(V1)] WARNING: DATA QUALITY MAY AFFECT INTERPRETATION Compared to ECG 06/21/2021 23:51:47 Intraventricular conduction delay now present Electronically Signed On 11-29-2021 22:06:38 CDT by Hunter Mixon M.D. [id number]
[2021-11-29 14:41] LABS: Basophils # 0.1 10^3/uL (0.0-0.1); Basophils % 0.9 %; Eosinophils # 0.3 10^3/uL (0.0-0.8); Eosinophils % 3.9 %; Hematocrit 41.9 % (42.0-52.0); Hemoglobin 14.7 g/dL (11.7-16.6); Lymphocytes # 2.4 10^3/uL (0.8-4.8); Lymphocytes % 33.8 %; Mean Corpuscular HGB Conc 35.1 g/dL (30.0-36.0); Mean Corpuscular Volume 88.4 fl (80-94); Mean Platelet Volume 11.6 fL (7.4-10.4); Monocytes # 0.4 10^3/uL (0.2-0.9); Neutrophils # 3.87 10^3/uL (1.8-7.7); Neutrophils % 55.1 %; Nucleated Red Blood Cells % 0 %; Platelet Count 259 10^3/cmm (130-400); Red Blood Count 4.74 10^6/uL (4.1-5.3); Red Cell Distribution Width 11.9 % (12.1-15.1)
[2021-11-29 15:01] LABS: Alanine Aminotransferase 30 U/L (0-41); Albumin Level 4.4 g/dL (3.5-5.2); Alkaline Phosphatase 60 U/L (40-130); Anion Gap 14.2 (5-19); Aspartate Amino Transferase 18 U/L (0-40); Blood Urea Nitrogen 20 mg/dL (6-20); Calcium 9.2 mg/dL (8.5-10.5); Carbon Dioxide 26 mmol/L (22-29); Chloride 104 mmol/L (98-107); Creatinine Clr Calc Pharmacy 115.6156; Globulin 2.6 g/dL (1.3-4.6); Glomerular Filtration Rate 89.3 mL/min (90-130); Glucose 96 mg/dL (65-115); Osmolality Calculated 292 mOsm/kg (285-295); Potassium 4.2 mmol/L (3.5-5.1); Sodium 140 mmol/L (136-145); Total Bilirubin 0.3 mg/dL (0.15-1.2)
[2021-11-29 15:02] LABS: Troponin(5th) Baseline 7 ng/L (0-15)
[2021-11-29] MEDS: lidocaine 2% viscous 15 ML, aluminum-mag hydrox-simethicon 30 ML, sucralfate oral liq 1 GM PO (15:12)
--- NOTE | 2021-11-29 15:31 | ED_ITS ---
HPI - Chest Pain General: Chief Complaint: Chest Pain Stated Complaint: Chest Pain Time Seen by Provider: 11/29/21 14:09 History of Present Illness: 51-year-old male presenting today with several hours of left-sided chest pain. Patient notes onset of pain almost 4 to 5 hours ago. Pain has been constant. Not improved or worsened by anything. Has had pain many times in the past. Previously seen cardiology and had a stress test. Question of his stress test was abnormal. Patient is currently scheduled for an outpatient echo for further evaluation. He denies fevers or chills. He denies cough or shortness of breath. He denies pain or swelling in his lower extremities. He denies history of blood clots. No prior history of coronary artery disease. No prior history of stenting. No prior history of coronary catheterization Review of Systems General: Reports: 10 or more systems reviewed and unremarkable except in HPI and below PFSH ED PFSH: Medical History HTN (hypertension) No pertinent family history Surgical History No pertinent past surgical history Family History Other No pertinent family history Social History Smoking and tobacco status: former smoker Alcohol intake: current Alcohol intake frequency: holidays/special occasions only Physical Exam Const: COMMON NORMALS: no acute distress, patient oriented x3 and alert GENERAL APPEARANCE: cooperative ORIENTATION/CONSCIOUSNESS: Yes awake, Yes oriented to person, Yes oriented to place and Yes oriented to time HENMT: COMMON NORMALS: normocephalic, atraumatic, external ears normal, Normal external nose present and moist oral mucous membranes HEAD & SCALP: normal to inspection, normocephalic and atraumatic NOSE: Normal external nose present GENERAL EAR: hearing grossly impaired EXTERNAL EAR: Yes external ears normal Eye: COMMON NORMALS: Equal, round and reactive pupils present, EOMs intact bilaterally, conjunctivae normal and no scleral icterus GENERAL EYE: appearance normal, both eyes and all related structures EYELID: eyelids normal CONJUNCTIVA: Yes conjunctivae normal SCLERA: sclerae normal PUPIL: Yes Equal, round and reactive pupils present Neck/C-Spine: COMMON NORMALS: full ROM, supple and no JVD GENERAL: Yes normal visual inspection Lymph: LYMPHATIC: no lymphadenopathy noted and no lymphedema noted Chest: COMMONS NORMALS: normal inspection of the chest Resp: COMMON NORMALS: normal respiratory effort, No retractions and No use of accessory muscles Cardio: COMMON NORMALS: no JVD, regular rate and regular rhythm RATE: regular rate RHYTHM: regular rhythm GI: COMMON NORMALS: Normal to inspection, nondistended, normoactive bowel sounds present : COMMON NORMALS: Yes no CVA tenderness BLADDER/KIDNEY EXAM: Yes no CVA tenderness Back/Pelvis: COMMON NORMALS: no CVA tenderness and thoracic and lumbar spine normal to inspection Extremity: COMMON NORMALS: normal to inspection, full ROM and capillary refill normal GENERAL: Yes normal exam except as noted Neuro: COMMON NORMALS: patient oriented x3, CN's II-XII intact bilaterally, moves all extremities, no focal motor deficits, no sensory deficits noted and gait normal SENSORIUM/ORIENTATION: Yes alert, Yes oriented to person, Yes oriented to place and Yes oriented to time Psych: COMMON NORMALS: mental status grossly normal, Normal thought process pr esent, cooperative and normal affect THOUGHT PROCESS: Normal thought process present Skin: COMMON NORMALS: no rashes or lesions noted and no wounds GENERAL SKIN EXAM: no rashes or lesions noted Course Vital Signs: Vital signs: Vital Signs Temperature 98.1 F 11/29/21 14:24 Pulse Rate 49 L 11/29/21 16:15 Respiratory Rate 14 11/29/21 16:15 Blood Pressure 133/87 11/29/21 16:15 Pulse Oximetry 94 11/29/21 16:15 Oxygen Delivery Me thod 11/29/21 14:24 MDM - Chest Pain Medical Decision Making 51-year-old male presenting today with left-sided chest pain. CBC is within normal limits. CMP is within normal limits. EKG is without acute changes to suggest ischemia. When compared to patient's prior EKGs no significant changes. Initial troponin within normal range. Chest x-ray is within normal range. Chest pain of uncertain etiology but not likely to be cardiac on this time. 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 Patient was given strict return precautions and recommended routine outpatient follow-up. Lab Data : 11/29/21 14:22 11/29/21 14:22 Radiology Impressions Chest X-Ray 11/29/21 13:59 IMPRESSION: No acute findings Laboratory Results WBC 7.0 10^3/uL (4.0-10.0) 11/29/21 14: RBC 4.74 10^6/uL (4.1-5.3) 11/29/21 14: Hgb 14.7 g/dL (11.7-16.6) 11/29/21 14: Hct 41.9 % (42.0-52.0) L 11/29/21 14: MCV 88.4 fl (80-94) 11/29/21 14: MCH 31.0 pg (28.0-34.0) 11/29/21 14: MCHC 35.1 g/dL (30.0-36.0) 11/29/21 14: RDW 11.9 % (12.1-15.1) L 11/29/21 14: Plt Count 259 10^3/cmm (130-400) 11/29/21 14: MPV 11.6 fL (7.4-10.4) H 11/29/21 14: Neut % (Auto) 55.1 % 11/29/21 14: Lymph % (Auto) 33.8 % 11/29/21 14: Addison % (Auto) 6.0 % 11/29/21 14: Eos % (Auto) 3.9 % 11/29/21: Baso % (Auto) 0.9 % 11/29/21: Neut # (Auto) 3.87 10^3/uL (1.8-7.7) 11/29/21 14: Lymph # (Auto) 2.4 10^3/uL (0.8-4.8) 11/29/21: Addison # (Auto) 0.4 10^3/uL (0.2-0.9) 11/29/21 14: Eos # (Auto) 0.3 10^3/uL (0.0-0.8) 11/29/21 14: Baso # (Auto) 0.1 10^3/uL (0.0-0.1) 11/29/21 14:22 Nucleated RBC % (auto) 0 % 11/29/21 14: Nucleated RBCs # 0.0 /100WBC 11/29/21 14:22 Sodium 140 mmol/L (136-145) 11/29/21 14:22 Potassium 4.2 mmol/L (3.5-5.1) 11/29/21 14:22 Chloride 104 mmol/L (98-107) 11/29/21 14:22 Carbon Dioxide 26 mmol/L (22-29) 11/29/21 14:22 Anion Gap 14.2 (5-19) 11/29/21 14:22 BUN 20 mg/dL (6-20) 11/29/21 14:22 Creatinine 0.9 mg/dL (0.7-1.2) 11/29/21 14: GFR Calculation 89.3 mL/min (90-130) L 11/29/21 14:22 Glucose 96 mg/dL (65-115) 11/29/21 14: Calculated Osmolality 292 mOsm/kg (285-295) 11/29/21 14:22 Calcium 9.2 mg/dL (8.5-10.5) 11/29/21 14:22 Total Bilirubin 0.3 mg/dL (0.15-1.2) 11/29/21 14: AST 18 U/L (0-40) 11/29/21 14: ALT 30 U/L (0-41) 11/29/21 14:22 Alkaline Phosphatase 60 U/L (40-130) 11/29/21 14: Troponin T Baseline 7 ng/L (0-15) 11/29/21 14:22 Total Protein 7.0 g/dL (6.6-8.7) 11/29/21 14: Albumin 4.4 g/dL (3.5-5.2) 11/29/21 14: Globulin 2.6 g/dL (1.3-4.6) 11/29/21 14:22 Discharge Plan Discharge Patient Disposition: Home Clinical Impression: Chest pain Condition: Stable Prescriptions: No Action albuterol sulfate [ProAir HFA] 90 mcg/actuation HFA aerosol inhaler 2 puff inhalation Q6H PRN (Reason: Shortness Of Breath) sertraline 50 mg tablet 50 mg PO DAILY metoprolol tartrate 25 mg tablet 25 mg PO BID 30 Days Qty: 60 5RF nitroglycerin 0.4 mg tablet, sublingual 0.4 mg sublingual Q5M PRN (Reason: chest pain) 30 Days Qty: 30 3RF Rx Instructions: until response; do not exceed 3 doses per episode valsartan 160 mg tablet 160 mg PO DAILY fluticasone furoate-vilanterol [Breo Ellipta] 100-25 mcg/dose blister with device 1 inh INHALATION DAILY Discharge Orders: Discharge ED (Routine); Ordered 11/29/21 Ordered By: Mazin Fleming Referrals: Shaka Thakkar MD [Primary Care Provider] - Patient Instructions: Chest Pain (ED) Coding Level of Care Code ED Cellular Tower Climber for Mariog Fwd Exam Comprehensive
[2021-11-29] MEDS: ketorolac 30 mg/mL INJ 15 MG IVP (15:53)
--- NOTE | 2021-11-29 15:59 | ECG_ITS ---
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 Measurements Intervals [place] Rate: 48 P: 25 MD: 149 QRS: -14 QRSD: 125 T: -1 QT: 480 QTc: 429 Interpretive Statements SINUS BRADYCARDIA POSSIBLE RIGHT VENTRICULAR CONDUCTION DELAY [RSR (QR) IN V1/V2] MODERATE VOLTAGE CRITERIA FOR LVH, CONSIDER NORMAL VARIANT [MEETS CRITERIA IN ONE OF: R(aVL), S(V1), R(V5), R(V5/V6)+S(V1)] Compared to ECG 11/29/2021 14:11:27 No significant changes Electronically Signed On 11-29-2021 22:04:49 CDT by Hunter Mixon M.D. [id number]
== END 2021-11-29 16:22 | disposition home or self-care (01) ==
PROVIDERS: Emergency Medicine; Emergency Provider Emergency Medicine; PCP Internal Medicine Cardiovascular Disease
DX: R07.9 Chest pain, unspecified (principal); I10 Essential (primary) hypertension; Z87.891 Personal history of nicotine dependence
CPT/HCPCS: 71045; 80053; 84484; 85025; 93005; 96374; 99285; J1885

== ENCOUNTER 2022-01-11 06:48 | Outpatient (CLI) | payer BC, SELFPAY ==
--- NOTE | 2022-01-11 07:00 | USCV_ITS ---
Sugar Fagan Age: 51 Gender: M : 1970 Exam Date: 01/11/2022 07:05 Ordering Phys: Shaka Thakkar MD ([email or web address]) Technologist: [place] [facility] [place]: chest pain BP: 134 / 74 HR: 57 Rhythm: Sinus Technical Quality: Adequate MEASUREMENTS (Male / Female) Normal Values 2D ECHO LV Diastolic Diameter PLAX 3.6 cm 4.2 - 5.9 / 3.9 - 5.3 cm LV Systolic Diameter PLAX 2.5 cm IVS Diastolic Thickness 1.1 cm 0.6 - 1.0 / 0.6 - 0.9 cm IVS Systolic Thickness 1.7 cm LVPW Diastolic Thickness 1.1 cm 0.6 - 1.0 / 0.6 - 0.9 cm LVPW Systolic Thickness 1.6 cm LVOT Diameter 2.0 cm LV Ejection Fraction 2D Teich 38.7 % LV Ejection Fraction MOD 2C 71.3 % LV Ejection Fraction 2C AL 70.6 % LA Diameter 4.3 cm Aorta at Sinotubular Diameter 3.0 cm M-MODE LV Diastolic Diameter MM 4.8 cm 4.2 - 5.9 / 3.9 - 5.3 cm LV Systolic Diameter MM 3.1 cm LV Ejection Fraction MM Teich 63.9 % IVS Diastolic Thickness MM 1.1 cm 0.6 - 1.0 / 0.6 - 0.9 cm IVS Systolic Thickness MM 1.6 cm LVPW Diastolic Thickness MM 1.3 cm 0.6 - 1.0 / 0.6 - 0.9 cm LVPW Systolic Thickness MM 1.6 cm RV Diastolic Diameter MM 1.8 cm Aortic Annulus Diameter 3.9 cm LA Ao Ratio MM 1.2 MV E Point Septal Separation 0.8 cm DOPPLER AV Peak Velocity 147.0 cm/s LVOT Peak Velocity 101.0 cm/s AV Area Cont Eq vti 1.7 cm squared AV Area Cont Eq pk 2.1 cm squared MV Area PHT 5.0 cm squared Mitral E to A Ratio 1.1 MV E' Velocity 42.5 cm/s Mitral E to MV E' Ratio 6.6 Mitral E to LV E' Lateral Ratio 5.2 Mitral E to LV E' Septal Ratio 9.2 TR Peak Velocity 169.7 cm/s TR Peak Gradient 11.5 mmHg TV Peak E Velocity 99.0 cm/s Right Atrial Pressure 3.0 mmHg Pulmonary Artery Systolic Pressu 14.5 mmHg RV Acceleration Time 0.1 s FINDINGS Left Ventricle Normal left ventricular size and systolic function, EF 65 %. No regional wall motion abnormalities. Right Ventricle The right ventricle is normal in size and function. Right Atrium The right atrium is normal in size. Left Atrium The left atrium is normal in size. Mitral Valve No gross abnormalities noted Aortic Valve No gross abnormalities noted Tricuspid Valve Trace tricuspid valve regurgitation. Pulmonic Valve Trace pulmonary valve regurgitation. Pericardium No pericardial effusion. Aorta Normal ascending aorta dimension. IVC The inferior vena cava appears normal. CONCLUSIONS Normal left ventricular size and systolic function, EF 65 %. No regional wall motion abnormalities. Trace tricuspid valve regurgitation. Trace pulmonary valve regurgitation. There is no pericardial effusion. There are no intracardiac masses. No similar previous studies are available for comparison Dr Shaka Thakkar MD FACC (Electronically Signed) Final Date: 11 January 2022 11:14 S
== END 2022-01-11 06:49 | disposition home or self-care (01) ==
PROVIDERS: PCP Internal Medicine Cardiovascular Disease; Visit Provider Internal Medicine Cardiovascular Disease
DX: R07.89 Other chest pain (principal); R06.09 Other forms of dyspnea; I07.1 Rheumatic tricuspid insufficiency
CPT/HCPCS: 93306

== ENCOUNTER 2022-01-22 14:12 | Observation (INO) | payer BC, SELFPAY ==
[2022-01-22] VITALS (33 sets, daily range): BP systolic 101–160; BP diastolic 66–106; PULSE 47–63; RESP 12–26; TEMP 36.5–36.8; O2SAT 94–99; BMI 34.0
--- NOTE | 2022-01-22 14:31 | ECG_ITS ---
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 Measurements Intervals [place] Rate: 57 P: 25 MO: 145 QRS: -19 QRSD: 118 T: -3 QT: 420 QTc: 410 Interpretive Statements SINUS BRADYCARDIA MODERATE INTRAVENTRICULAR CONDUCTION DELAY [110+ ms QRS DURATION] MODERATE VOLTAGE CRITERIA FOR LVH, CONSIDER NORMAL VARIANT [MEETS CRITERIA IN ONE OF: R(aVL), S(V1), R(V5), R(V5/V6)+S(V1)] Compared to ECG 11/29/2021 16:08:10 Intraventricular conduction delay now present Electronically Signed On 01-23-2022 16:39:08 ATHLETIC SHOE DESIGNER by Brian Mcdowell M.D. [email or web address] [email or web address] [id number]
--- NOTE | 2022-01-22 14:34 | XR_ITS ---
WS: [id number] Portable AP upright chest, 01/22/2022 Clinical Data: CP Comparison: Portable chest, 11/29/2021 Findings: No nodules, masses or effusions are seen. The heart is normal. The pulmonary vascularity is not increased. No pneumonia or pneumothorax is seen. There is an orthopedic plate reducing a right m idclavicular fracture. Monitor leads are on the chest wall. XR/XR chest 1V portable [id number] Impression: Negative chest.
[2022-01-22 14:36] LABS: Basophils # 0.1 10^3/uL (0.0-0.1); Basophils % 1.1 %; Eosinophils # 0.2 10^3/uL (0.0-0.8); Eosinophils % 3.3 %; Hematocrit 41.3 % (42.0-52.0); Hemoglobin 14.2 g/dL (11.7-16.6); Lymphocytes # 2.1 10^3/uL (0.8-4.8); Lymphocytes % 29.8 %; Mean Corpuscular HGB Conc 34.4 g/dL (30.0-36.0); Mean Corpuscular Hemoglobin 30.6 pg (28.0-34.0); Mean Platelet Volume 11.2 fL (7.4-10.4); Monocytes # 0.5 10^3/uL (0.2-0.9); Monocytes % 7.3 %; Neutrophils # 4.18 10^3/uL (1.8-7.7); Neutrophils % 58.4 %; Nucleated Red Blood Cells % 0 %; Platelet Count 260 10^3/cmm (130-400); Red Blood Count 4.64 10^6/uL (4.1-5.3); Red Cell Distribution Width 12.5 % (12.1-15.1); White Blood Count 7.2 10^3/uL (4.0-10.0)
--- NOTE | 2022-01-22 14:37 | W.ED.CHESTPA ---
HPI - Chest Pain General: Chief Complaint: Chest Pain Stated Complaint: Chest pains for 2 hours Time Seen by Provider: 01/22/22 14:32 Source: patient Mode of arrival: ambulatory History of Present Illness: 51-year-old male presents emergency room complaining of chest pain. Patient has had intermittent chest pain for the last 2 months. In September of this year he had a Lexiscan sestamibi stress test that was abnormal with ischemic area in the LAD. He is scheduled to have a angiogram done but has not yet had it completed. He has a history of hypertension hyperlipidemia he does not smoke he is not known to be diabetic he is on metoprolol and valsartan as well as atorvastatin. Over the last 2 months he has had escalating chest pain most often at rest. 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 He has a family history of coronary disease with a father is also had angiography with stenting. MD complaint: chest pain Pertinent past history: coronary artery disease Onset (ago): minute(s) Timing of current episode: episodic Prior episodes: Yes Onset: during rest Pain location: left chest Pain radiation: left arm and neck Quality: aching and heaviness Relieving factors: nothing Exacerbating factors: nothing Associated symptoms: Reports diaphoresis, dyspnea and sense of impending doom; Deny abdominal pain, fever(s), nausea, palpitations or vomiting Treatment prior to arrival: aspirin Review of Systems Const: Reports: diaphoresis; Denies: fever(s), chills, fatigue or malaise ENMT: Denies: throat pain, ear or mastoid pain, nasal discharge or nasal congestion Card: Reports: chest pain; Denies: palpitations, irregular heart rhythm, edema, dyspnea on exertion or orthopnea Resp: Reports: dyspnea GI: Denies: abdominal pain, nausea, vomiting, hematemesis, coffee ground emesis, diarrhea, constipation, bloating, hematochezia or melena : Denies: flank pain, dysuria, urinary frequency or urinary urgency Musc: Reports: neck pain Skin/Breast: Denies: rash or pruritus PFSH ED PFSH: Medical History Chest pain HTN (hypertension) No pertinent family history Surgical History No pertinent past surgical history Family History Other No pertinent family history Social History Smoking and tobacco status: former smoker Alcohol intake: current Alcohol intake frequency: holidays/special occasions only Physical Exam Const: GENERAL APPEARANCE: cooperative ORIENTATION/CONSCIOUSNESS: Yes awake, Yes oriented to person, Yes oriented to place and Yes oriented to time HENMT: COMMON NORMALS: normocephalic, atraumatic and hearing grossly normal bilaterally HEAD & SCALP: normocephalic and atraumatic Resp: COMMON NORMALS: normal respiratory effort, No retractions, No use of accessory muscles and clear to auscultation bilaterally AUSCULTATION: clear to auscultation bilaterally Cardio: COMMON NORMALS: regular rate, regular rhythm and No murmurs present (Cardio) RATE: regular rate RHYTHM: regular rhythm GI: COMMON NORMALS: Soft to palpation and No hepatosplenomegaly present AUSCULTATION: Yes normoactive bowel sounds PALPATION: Yes Soft to palpation, No Tenderness to palpation present (GI), No Guarding due to palpation present (GI) and Yes No hepatosplenomegaly present Extremity: COMMON NORMALS: normal to inspection, capillary refill normal, no clubbing, cyanosis or edema, no calf tenderness and no pedal edema Neuro: SENSORIUM/ORIENTATION: Yes oriented to person, Yes oriented to place and Yes oriented to time Skin: COMMON NORMALS: no rashes or lesions noted GENERAL SKIN EXAM: no rashes or lesions noted Course Vital Signs: Vital signs: Vital Signs Temperature 98.1 F 01/23/22 09:34 Pulse Rate 62 01/23/22 09:34 Respiratory Rate 12 01/23/22 09:34 Blood Pressure 124/90 01/23/22 09:34 Pulse Oximetry 96 01/23/22 09:34 Oxygen Delivery Me thod 01/23/22 09:34 MDM - Chest Pain Medical Decision Making 2:46 PM: 51-year-old male unfortunately has been having escalating unstable angina for over 6 months now. In mid September he had a Lexiscan sestamibi stress test which was positive in the LAD region he has not had any intervention since that time he is continue to have episodes of escalating angina. He has nitroglycerin but he has not used it up to this point. Review of the patient is initial EKG was unremarkable repeated it shows no change there is inversion of T wave in lead III but no ST elevation. He was given 600 of Plavix 325 aspirin 100 of Lovenox and started on nitro drip. If patient does not have alleviation of chest pain within the next 30 minutes we will consult cardiology. Cardiology seen the patient and department is taking him to [facility] for angiography. Medical Records I reviewed the patient's medical records. Lab Data I reviewed the patient's lab results. 01/22/22 14:20 01/22/22 14:20 Radiology Impressions Chest X-Ray 01/22/22 14: Impression: Negative chest. Laboratory Results WBC 7.2 10^3/uL (4.0-10.0) 01/22/22 14:20 RBC 4.64 10^6/uL (4.1-5.3) 01/22/22 14:20 Hgb 14.2 g/dL (11.7-16.6) 01/22/22 14:20 Hct 41.3 % (42.0-52.0) L 01/22/22 14:20 MCV 89.0 fl (80-94) 01/22/22 14:20 MCH 30.6 pg (28.0-34.0) 01/22/22 14:20 MCHC 34.4 g/dL (30.0-36.0) 01/22/22 14:20 RDW 12.5 % (12.1-15.1) 01/22/22 14:20 Plt Count 260 10^3/cmm (130-400) 01/22/22 14:20 MPV 11.2 fL (7.4-10.4) H 01/22/22 14:20 Neut % (Auto) 58.4 % 01/22/22 14:20 Lymph % (Auto) 29.8 % 01/22/22 14:20 [place] % (Auto) 7.3 % 01/22/22 14:20 Eos % (Auto) 3.3 % 01/22/22 14:20 Baso % (Auto) 1.1 % 01/22/22 14:20 Neut # (Auto) 4.18 10^3/uL (1.8-7.7) 01/22/22 14:20 Lymph # (Auto) 2.1 10^3/uL (0.8-4.8) 01/22/22 14:20 [place] # (Auto) 0.5 10^3/uL (0.2-0.9) 01/22/22 14:20 Eos # (Auto) 0.2 10^3/uL (0.0-0.8) 01/22/22 14:20 Baso # (Auto) 0.1 10^3/uL (0.0-0.1) 01/22/22 14:20 Nucleated RBC % (auto) 0 % 01/22/22 14:20 Nucleated RBCs # 0.0 /100WBC 01/22/22 14:20 Sodium 139 mmol/L (136-145) 01/22/22 14:20 Potassium 3.8 mmol/L (3.5-5.1) 01/22/22 14:20 Chloride 102 mmol/L (98-107) 01/22/22 14:20 Carbon Dioxide 26 mmol/L (22-29) 01/22/22 14:20 Anion Gap 14.8 (5-19) 01/22/22 14:20 BUN 17 mg/dL (6-20) 01/22/22 14:20 Creatinine 1.0 mg/dL (0.7-1.2) 01/22/22 14:20 GFR Calculation 79.1 mL/min (90-130) L 01/22/22 14:20 Glucose 98 mg/dL (65-115) 01/22/22 14:20 Calculated Osmolality 290 mOsm/kg (285-295) 01/22/22 14:20 Calcium 9.5 mg/dL (8.5-10.5) 01/22/22 14:20 Total Bilirubin 0.3 mg/dL (0.15-1.2) 01/22/22 14:20 AST 20 U/L (0-40) 01/22/22 14:20 ALT 33 U/L (0-41) 01/22/22 14:20 Alkaline Phosphatase 71 U/L (40-130) 01/22/22 14:20 Troponin T Baseline 7 ng/L (0-15) 01/22/22 14:20 Troponin T 120 Minute 6.00 ng/L (0-15) 01/22/22 16:08 Delta Troponin T -1.00 ABS# (0-10) L 01/22/22 16:08 NT-Pro-B Natriuret Pep 20 pg/mL (0-125) 01/22/22 14:20 Total Protein 6.8 g/dL (6.6-8.7) 01/22/22 14:20 Albumin 4.2 g/dL (3.5-5.2) 01/22/22 14:20 Globulin 2.6 g/dL (1.3-4.6) 01/22/22 14:20 Discharge Plan Discharge Patient Disposition: Placed in Observation Admit Provider: Brian Mcdowell Clinical Impression: Unstable angina pectoris, HTN (hypertension), Family history of coronary artery disease, Positive cardiac stress test Discharge Diet: Usual diet and Regular Discharge Activity: Increase activity as tolerated and Limit activity as instructed Coding Level of Care Code 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
[2022-01-22] MEDS: aspirin 81 mg Chew Tablet 324 MG PO (14:41)
[2022-01-22] MEDS: clopidogrel 300 mg Tablet 600 MG PO (14:41)
[2022-01-22] MEDS: enoxaparin 100 mg/mL Syringe SUBCUT (14:43)
[2022-01-22] MEDS: nitroglycerin drip 50 MG/250 ML PREMIX IV (14:48)
[2022-01-22 14:51] LABS: Troponin(5th) Baseline 7 ng/L (0-15)
[2022-01-22] MEDS: morphine 4 mg/mL SDV 1 mL IVP (14:56)
[2022-01-22 14:59] LABS: Alanine Aminotransferase 33 U/L (0-41); Albumin Level 4.2 g/dL (3.5-5.2); Alkaline Phosphatase 71 U/L (40-130); Anion Gap 14.8 (5-19); Aspartate Amino Transferase 20 U/L (0-40); Blood Urea Nitrogen 17 mg/dL (6-20); Calcium 9.5 mg/dL (8.5-10.5); Carbon Dioxide 26 mmol/L (22-29); Chloride 102 mmol/L (98-107); Globulin 2.6 g/dL (1.3-4.6); Glomerular Filtration Rate 79.1 mL/min (90-130); Glucose 98 mg/dL (65-115); NT Pro B Type Natriuretic Pept 20 pg/mL (0-125); Osmolality Calculated 290 mOsm/kg (285-295); Potassium 3.8 mmol/L (3.5-5.1); Sodium 139 mmol/L (136-145); Total Bilirubin 0.3 mg/dL (0.15-1.2); Total Protein 6.8 g/dL (6.6-8.7)
[2022-01-22] MEDS: diphenhydrAMINE 50 mg/mL SDV 1mL IVP (15:02)
--- NOTE | 2022-01-22 15:54 | P.HP_ITS ---
Providers/Chief Complaint Admitting Physician: francisca Primary Care Provider: Shaka Thakkar MD Chief Complaint: Chest pains for 2 hours History of Present Illness Sugar Fagan Jr is a 51 year old male who has been having chest pain on and off since June of this year. He has been in the emergency room on multiple occasions throughout the calendar year. In February he was here with COVID. In April he was here with colicky abdominal pain. In June was his first episode of chest p ain he visited the emergency room. His studies were negative. He was here in July with fever. Stress test was ultimately done. It was very minimally abnormal with a small area of ischemia in the LAD. He saw Dr. Thakkar in the clinic on 17 November. An echo was done which was normal. There was a discussion held regarding doing an angiogram. Apparently it was scheduled for next week. Patient has become anxious and came back to the emergency room today with chest pain. He has been placed on intravenous nitroglycerin drip. He still having chest pain at a 2 out of 10. His troponin is 7 and his EKG is unremarkable. He has been given Plavix 600 mg, aspirin 324 mg, Lovenox 100 mg and morphine 4 mg. Despite all of that he continues to complain of chest discomfort. He quit smoking many years ago. He works in the [employer]. He has hypertension, dyslipidemia, reactive airways disease and a strong positive family history of heart disease. Review of Systems Narrative: Review of systems is negative. Medications/Allergies Home Medications Medication Instructions Recorded Confirmed Last Taken Type albuterol sulfate 90 mcg/actuation 2 puff inhalation Q6H PRN 10/06/20 01/22/22 Unknown History aerosol inhaler (ProAir HFA) Shortness Of Breath fluticasone furoate 100 1 inh inhalation DAILY 09/10/21 01/22/22 09/10/21 History mcg-vilanterol 25 mcg/dose inhalation powder (Breo Ellipta) metoprolol tartrate 25 mg tablet 25 mg PO BID 30 days #60 tabs 11/17/21 01/22/22 01/22/22 Rx nitroglycerin 0.4 mg sublingual 0.4 mg sublingual Q5M PRN chest 11/17/21 01/22/22 Unknown Rx tablet pain 30 days #30 tabs sertraline 50 mg tablet 50 mg PO QAM 11/17/21 01/22/22 01/22/22 History aspirin 325 mg tablet 325 mg PO QAM 01/22/22 01/22/22 01/22/22 History atorvastatin 40 mg tablet 40 mg PO BEDTIME 01/22/22 01/22/22 01/21/22 History valsartan 80 mg tablet 120 mg PO QAM 01/22/22 01/22/22 01/22/22 History Allergies Allergy/AdvReac Type Severity Reaction Status Date / Time Penicillins Allergy Intermediate rash Verified 01/22/22 14:37 Sulfa (Sulfonamide Allergy Intermediate rash Verified 01/22/22 14:37 Antibiotics) PFSH Acute PFSH: Medical History (Updated 01/22/22 @ 15:59 by Brian Mcdowell MD) Chest pain HTN (hypertension) No pertinent family history Surgical History No pertinent past surgical history Family History Other No pertinent family history Social History Smoking and tobacco status: former smoker Alcohol intake: current Alcohol intake frequency: holidays/special occasions only Vitals/I&O/Wt Last Vital Signs Temp 98.2 F 01/22/22 14:16 Pulse 63 01/22/22 15:00 Resp 19 H 01/22/22 15:00 BP 136/85 01/22/22 15:00 Pulse Ox 97 01/22/22 15:00 O2 Del Method 01/22/22 15:00 01/22/22 01/22/22 01/22/22 06:59 14:59 22:59 Intake Total 0.125 / 0.125 0.45 / 0.575 Balance 0.125 / 0.125 0.45 / 0.575 Weight last 48 hrs Weight 230 lb Physical Exam Narrative: GENERAL: In general he looks well but is anxious HEENT: Exam within normal limits. NECK: Supple without jugular vein distention. The carotid upstroke is normal without bruits. BACK: Exam normal. LUNGS: Clear. HEART: Regular rate and rhythm. ABDOMEN: Benign without organomegaly or tenderness. EXTREMITIES: No edema. NEUROLOGIC: Exam normal. SKIN: Unremarkable. Data 01/22/22 14:20 01/22/22 14:20 A&P Assessment and plan (1) Abnormal cardiovascular stress test: (2) Atypical chest pain: (3) Reactive airway disease with wheezing: (4) Dyslipidemia: (5) Chest pain: Plan He needs coronary angiography for definitive diagnosis. I am expecting him not to have significant coronary disease but nonetheless he needs an evaluation due to his multiple visits with chest pain. Pain is atypical. We will proceed today. Attestations Medical Necessity Statement*: Admission for chest pain and coronary angio graphy. I do not expect him to be in the hospital past 2 midnights. 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
--- NOTE | 2022-01-22 16:09 | XACV_ITS ---
Exam Room: 2 Ht: 175 cm Wt: 107 kg BSA: 2.32 m2 Gender: Male : 1970 Any Known Allergies: Sulfa Exam Priority: Routine Indication(s): - Chest pain Procedure(s): Procedure Description: Diagnostic procedure Procedure Description: Coronary Angiography LIZA Jeremias; Diagnostic Cath Status: Elective Diagnostic Findings * Patient has had multiple emergency room visits, minimally positive stress testing and negative EKGs and troponins. Angiography indicated for assessment of chest pain. Angiography reveals a left dominant system. The left main is normal. The LAD and circumflex are normal. The right is a relatively small artery that ends as marginal or posterior LV branch. It is also normal. No left ventriculogram was done since he has had an echo in the recent past.. Conclusions 1. Normal coronary arteries. Recommendations * None. Interventional RX Recommendation: medical therapy and/or counseling Diagnostic RX Recommendation: medical therapy and/or counseling Anticoagulation: Heparin Pressures Phase:Rest AO : 122 / 81 ( 99 ) @ 4:38:00 PM 111 / 83 ( 99 ) @ 4:43:00 PM 105 / 78 ( 92 ) @ 4:43:00 PM Clinical Evaluation EBL: 5mL-10mL Procedural Details Pre-Procedure Time Out. Identified patient by full name and date of as verbalized by the patient/guarantor. Does the consent match the physician's order: Yes. Accurate & Complete Informed Consent: Yes. Inpatient/Outpatient History & Physical on Chart: Yes. If H&P is completed, is and addenduem needed: No; If yes, is the addendum complete: N/A. Visualize and Verify Site with Patient/Guarantor: N/A. Relevant Radiology Images available: N/A. Pre-op teaching completed and patient verbalized understanding. The risks, benefits, and alternatives of sedation and/or procedure were discussed by physician. The patient agrees to continue. Procedure started. [facility] Clinical Fraility Score: 3: Managing Well. 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 Chest Pain Symptom Assessment: Typical Angina Symptoms. Correct patient, site and procedure confirmed by cath team. Current diagnosis: Chest Pain. PERRLA. Strong, equal hand design draftsman bilaterally. Lungs clear x 5 lobes. IV Site on Arrival: 18 gauge in the left anticubital. IV Fluids: 0.9% NaCl at KVO. 0 mL infused prior to field laborer. Pre Procedural Pulses: right radial was 2+. Oxygen started at 2liters/min via nasal canula. right groin was prepped with chloroprep then draped in the usual sterile fashion. right radial was prepped with chloroprep then draped in the usual sterile fashion. Physician notified. Baseline sample Acquired. HR: 49 BPM. Physician arrived. Current Diagnosis : Chest Pain. Physician scrubbed in. Immediate Pre-Procedure Time Out. Correct Patient: Yes; Correct Procedure: Yes; Correct Site: Yes; Correct Patient Position: Yes; Correct Supplies: Yes; Dried Flammable Prep: Yes; Blood Products Available: N/A;. Lidocaine 1% infiltrated to the right radial. Arterial access obtained. A 6 [place] island[place] TIG catheter in over wire. Multiple views taken of right coronary artery. Catheter redirected to the LCA. Multiple views taken of left coronary artery. Catheter removed over the exchange wire. Catheter removed over the exchange wire. A 6 [place] islander TIG catheter in over wire. Catheter out. Physician scrubbed out. A TR Band was successful obtaining hemostatsis at the Right Radial artery insertion site. Post Procedure: Pulses reassessed and unchanged. PERRLA. Strong, equal hand design draftsman bilaterally. No VTE prophylaxis required. Medication's Wasted: Lidocaine 1% = 3 mL. Medication's Wasted: Nitro = 49.8 mg. Medication's Wasted: Heparin = 3500 units. Medication's Wasted: Other = Fentanyl 75mcg Versed 1 mg. Total IV fluids: 33 mL. Post-op diagnosis: Normal Coronaries. Complications: None. Estimated blood loss: 5mL-10mL. Responsiveness - Normal response to verbal stimuli; alert and oriented, PERRLA. Airway - Unaffected, no intervention required; spontaneous ventilation. Circulation: W/N/L, pulses unchanged. Nausea/Vomiting: No. Vital chart was stopped. Procedure completed. Patient transferred by wheelchair to 1st floor. Access Site Site: Right Radial artery Sheath Size: 6 Fr Hemostasis Method: TR Band Hemostasis Success: Successful Procedure Medications Start: 4:33 PM Stop: 4:33 PM Medication: Versed 1 mg and Fentanyl 25 mcg Amount: 1 Route: I.V. Start: 4:35 PM Stop: 4:35 PM Medication: Nitrogylcerin Amount: 200 mcg Route: I.A. Start: 4:42 PM Stop: 4:42 PM Medication: Heparin Amount: 2500 units Route: I.V. I, the attending physician, have reviewed and verified all procedure medications. Yes, all medications given per verbal order History/Risk Factors Hypertension: Yes Dyslipidemia: No Peripheral Arterial Disease (PAD): No Myocardial Infarction ([place]): No Obesity: Yes Renal Disease: No Tobacco Use: Former Prior Interventions PCI: No CABG: No Valve Surgery: No Report Signatures Finalized by Dr. Brian Mcdowell MD on 01/22/2022 05:18 PM
[2022-01-22] MEDS: acetaminophen 325 mg Tablet 650 MG PO (20:31)
[2022-01-22] MEDS: atorvastatin 40 mg Tablet PO (20:31)
--- NOTE | 2022-01-22 20:31 | ECG_ITS ---
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 Measurements Intervals [place] Rate: 62 P: 46 [place]: 142 QRS: -16 QRSD: 121 T: 2 QT: 423 QTc: 432 Interpretive Statements SINUS RHYTHM MODERATE INTRAVENTRICULAR CONDUCTION DELAY [110+ ms QRS DURATION] INTERPRETATION BASED ON A DEFAULT AGE OF 40 YEARS Compared to ECG 11/29/2021 16:08:10 Intraventricular conduction delay now present Sinus bradycardia no longer present Electronically Signed On 01-23-2022 16:44:24 RAMP FLIGHT ATTENDANT by Brian Mcdowell M.D. [id number]
[2022-01-22] MEDS: budesonide 0.5 mg/2 mL Neb INHALATION (21:11)
[2022-01-23] MEDS: sodium chloride 0.9% 1,000 ML 100 ML IV (02:23)
[2022-01-23 03:36] VITALS: BP 100/69; PULSE 49; RESP 14; TEMP 36.6; O2SAT 95
[2022-01-23 05:14] VITALS: PULSE 46
[2022-01-23] MEDS: sertraline 50 mg Tablet PO (05:47)
[2022-01-23] MEDS: losartan 50 mg Tablet 25 MG PO (05:51)
--- NOTE | 2022-01-23 07:49 | P.DS_ITS ---
Discharge Providers Date of Admission: 01/22/22 17:16 Date of Discharge: January 23, 2022 Attending Provider at Admission: Brian Mcdowell MD Attending Provider at Discharge: Brian Mcdowell MD Primary Care Provider: Shaka Thakkar MD Diagnoses at Discharge Discharge Diagnosis (1) Abnormal cardiovascular stress test: Status: Acute (2) Atypical chest pain: Status: Acute (3) Reactive airway disease with wheezing: Status: Acute (4) Dyslipidemia: Status: Acute (5) Chest pain: Status: Acute Reason for Visit Reason for Visit: Chest pains for 2 hours Brief History: The patient has been having chest pain on and off for several months. Stress testing was minimally abnormal. He continued to have pain with several maria eugenia ency room visits returning yesterday. Troponins have never been abnormal and EKGs have been unremarkable. I brought him in yesterday afternoon for angiography to answer the question once and for all. Hospital Course Hospital Course His coronary arteries are normal. Previous echo and stress testing have revealed normal LV function. The procedure was done from the right radial artery. No vascular complications noted. Patient will be sent home on his same medications. Follow-up in 7 to 10 days. Instructed to not lift anything more than 5 pounds for 2 days and to be off work until January 27. Physical Exam Narrative: GENERAL: In general he is comfortable at rest without pain. HEENT: Exam within normal limits. NECK: Supple without jugular vein distention. The carotid upstroke is normal without bruits. BACK: Exam normal. LUNGS: Clear. HEART: Regular rate and rhythm. ABDOMEN: Benign without organomegaly or tenderness. EXTREMITIES: No edema. At the time of discharge his right wrist is flat, dry without bleeding, hematoma or other vascular anomaly. Pulses 2+. NEUROLOGIC: Exam normal. SKIN: Unremarkable. Discharge Data Studies Completed and Pending Completed Studies During Hospitalization Category Date Time Status [employer] request for service Stat Exams 01/22/22 16:09 Completed XR chest 1V portable [id number] Stat Exams 01/22/22 14:34 Completed Radiology Impressions Chest X-Ray 01/22/22 14:34 Impression: Negative chest. Laboratory Results WBC 7.2 10^3/uL (4.0-10.0) 01/22/22 14:20 RBC 4.64 10^6/uL (4.1-5.3) 01/22/22 14:20 Hgb 14.2 g/dL (11.7-16.6) 01/22/22 14:20 Hct 41.3 % (42.0-52.0) L 01/22/22 14:20 MCV 89.0 fl (80-94) 01/22/22 14:20 MCH 30.6 pg (28.0-34.0) 01/22/22 14:20 MCHC 34.4 g/dL (30.0-36.0) 01/22/22 14:20 RDW 12.5 % (12.1-15.1) 01/22/22 14:20 Plt Count 260 10^3/cmm (130-400) 01/22/22 14:20 MPV 11.2 fL (7.4-10.4) H 01/22/22 14:20 Neut % (Auto) 58.4 % 01/22/22 14:20 Lymph % (Auto) 29.8 % 01/22/22 14:20 [place] % (Auto) 7.3 % 01/22/22 14:20 Eos % (Auto) 3.3 % 01/22/22 14:20 Baso % (Auto) 1.1 % 01/22/22 14:20 Neut # (Auto) 4.18 10^3/uL (1.8-7.7) 01/22/22 14:20 Lymph # (Auto) 2.1 10^3/uL (0.8-4.8) 01/22/22 14:20 [place] # (Auto) 0.5 10^3/uL (0.2-0.9) 01/22/22 14:20 Eos # (Auto) 0.2 10^3/uL (0.0-0.8) 01/22/22 14:20 Baso # (Auto) 0.1 10^3/uL (0.0-0.1) 01/22/22 14:20 Nucleated RBC % (auto) 0 % 01/22/22 14:20 Nucleated RBCs # 0.0 /100WBC 01/22/22 14:20 Sodium 139 mmol/L (136-145) 01/22/22 14:20 Potassium 3.8 mmol/L (3.5-5.1) 01/22/22 14:20 Chloride 102 mmol/L (98-107) 01/22/22 14:20 Carbon Dioxide 26 mmol/L (22-29) 01/22/22 14:20 Anion Gap 14.8 (5-19) 01/22/22 14:20 BUN 17 mg/dL (6-20) 01/22/22 14:20 Creatinine 1.0 mg/dL (0.7-1.2) 01/22/22 14:20 GFR Calculation 79.1 mL/min (90-130) L 01/22/22 14:20 Glucose 98 mg/dL (65-115) 01/22/22 14:20 Calculated Osmolality 290 mOsm/kg (285-295) 01/22/22 14:20 Calcium 9.5 mg/dL (8.5-10.5) 01/22/22 14:20 Total Bilirubin 0.3 mg/dL (0.15-1.2) 01/22/22 14:20 AST 20 U/L (0-40) 01/22/22 14:20 ALT 33 U/L (0-41) 01/22/22 14:20 Alkaline Phosphatase 71 U/L (40-130) 01/22/22 14:20 Troponin T Baseline 7 ng/L (0-15) 01/22/22 14:20 Troponin T 120 Minute 6.00 ng/L (0-15) 01/22/22 16:08 Delta Troponin T -1.00 ABS# (0-10) L 01/22/22 16:08 NT-Pro-B Natriuret Pep 20 pg/mL (0-125) 01/22/22 14:20 Total Protein 6.8 g/dL (6.6-8.7) 01/22/22 14:20 Albumin 4.2 g/dL (3.5-5.2) 01/22/22 14:20 Globulin 2.6 g/dL (1.3-4.6) 01/22/22 14:20 Procedures Performed Coronary angiography Vitals Last Vital Signs Temp 97.9 F 01/23/22 03:36 Pulse 46 L 01/23/22 05:14 Resp 14 01/23/22 03:36 BP 100/69 01/23/22 03:36 Pulse Ox 95 01/23/22 03:36 O2 Del Method 01/23/22 03:36 Discharge Plan Discharge Patient Disposition: Home Condition: Stable Prescriptions: Continued albuterol sulfate [ProAir HFA] 90 mcg/actuation HFA aerosol inhaler 2 puff inhalation Q6H PRN (Reason: Shortness Of Breath) sertraline 50 mg tablet 50 mg PO QAM metoprolol tartrate 25 mg tablet 25 mg PO BID 30 Days Qty: 60 5RF nitroglycerin 0.4 mg tablet, sublingual 0.4 mg sublingual Q5M PRN (Reason: chest pain) 30 Days Qty: 30 3RF Rx Instructions: until response; do not exceed 3 doses per episode fluticasone furoate-vilanterol [Breo Ellipta] 100-25 mcg/dose blister with device 1 inh INHALATION DAILY atorvastatin 40 mg tablet 40 mg PO BEDTIME aspirin 325 mg Tablet 325 mg PO QAM valsartan 80 mg tablet 120 mg PO QAM Discharge Orders: Discharge Order (Routine); Ordered 01/23/22 Ordered By: Brian Mcdowell Referrals: Shaka Thakkar MD [Primary Care Provider] - Margaret Vinson FNP [Nurse Practitioner] - 7-10 days (Right radial artery check and chemistry panel) Discharge Diet: Usual diet and Regular Discharge Activity: Increase activity as tolerated and Limit activity as instructed Patient Instructions: Opioid Safety Activity Restrictions/Additional Instructions: No lifting over 5 pounds with the right arm for 2 days. Report any swelling, pain or bleeding from the right wrist. May return to work January 27 without restriction. Discharge Attestations Time Spent in Discharge Care*: less than 30 min Quality Metrics Clinical Quality Measures [ No reported AMI, CVA or VTE this stay] Coding Level of Care Code Established Pt Acute Chg FW DC note Patient Type Established History Detailed Exam Detailed Medical Decision Making Moderate Complexity Diagnoses Abnormal cardiovascular stress test R94.39 Atypical chest pain R07.89 Reactive airway disease with wheezing J45.909 Dyslipidemia E78.5 Chest pain R07.9
[2022-01-23 08:00] VITALS: PULSE 58; RESP 16; O2SAT 98
[2022-01-23] MEDS: budesonide 0.5 mg/2 mL Neb INHALATION (08:14)
[2022-01-23 09:34] VITALS: BP 124/90; PULSE 62; RESP 12; TEMP 36.7; O2SAT 96
== END 2022-01-23 09:38 | disposition home or self-care (01) ==
LOC: ER 14:37 → CSU 17:21
PROVIDERS: Family Medicine; Admitting Provider Internal Medicine Cardiovascular Disease; Emergency Provider Family Medicine; PCP Internal Medicine Cardiovascular Disease; Visit Provider Internal Medicine Cardiovascular Disease
DX: R94.39 Abnormal result of other cardiovascular function study (principal); R07.89 Other chest pain; J45.909 Unspecified asthma, uncomplicated; E78.5 Hyperlipidemia, unspecified; I10 Essential (primary) hypertension; E66.9 Obesity, unspecified; Z68.34 Body mass index [BMI] 34.0-34.9, adult; Z87.891 Personal history of nicotine dependence; Z86.16 Personal history of COVID-19; Z79.82 Long term (current) use of aspirin
CPT/HCPCS: 71045; 80053; 83880; 84484; 85025; 93005; 93454; 94640; 96365; 96366; 96372; 96375; 99152; 99153; 99285; C1769; C1887; C1894; G0378; J1200; J1644; J1650; J2250; J2270; J3010; J3490; J7030; J7626; Q9967

== ENCOUNTER → 2022-02-17 16:41 | Outpatient (BNVA) | payer BC, SELFPAY | PROVIDERS: PCP Internal Medicine Cardiovascular Disease; Visit Provider Nurse Practitioner Family | DX: I10 Essential (primary) hypertension (principal) | CPT/HCPCS: 80048 ==

== ENCOUNTER 2023-03-29 17:32 | Emergency (ER) | payer BC, SELFPAY ==
[2023-03-29] VITALS (26 sets, daily range): BP systolic 118–148; BP diastolic 77–97; PULSE 97–118; RESP 18; TEMP 37.1; O2SAT 93–97; BMI 36.9
--- NOTE | 2023-03-29 17:34 | XRR_ITS ---
PROCEDURE INFORMATION: Exam: XR Chest Exam date and time: 03/29/2023 6:07 PM Age: 53 years old Clinical indication: Cough and fever TECHNIQUE: Imaging protocol: Radiologic exam of the chest. Views: 1 view. COMPARISON: CR XR chest 1V portable [id number] 01/22/2022 2:46 PM FINDINGS: Lungs: No focal consolidation. Pleural spaces: No evidence of pneumothorax. No evidence of pleural effusion. Heart/Mediastinum: Cardiomediastinal silhouette is within normal limits. Bones/joints: No evidence of acute osseous abnormality. Prior ORIF of the right clavicle with plate and screw fixation. XR/XR chest 1V portable [id number] IMPRESSION: 1. No acute cardiopulmonary abnormality.
--- NOTE | 2023-03-29 18:08 | ED_ITS ---
HPI - COVID 2 General: Chief Complaint: COVID symptoms Stated Complaint: fever, cough, body aches Time Seen by Provider: 03/29/23 17:49 Source: patient Mode of arrival: ambulatory Limitations: no limitations History of Present Illness: 53-year-old male states that over the 3 days he has been having bodyaches chills cough and muscle aches. States he has had increasing cough he does have a history of asthma has had wheezing as well. He denies any vomiting or diarrhea he is afebrile here. He does have an inhaler at home he uses states he has to be using it due to his cough. He is to play soccer states he is around a lot of people unsure if he had any known sick contacts. COVID 19 common symptoms: positive chills, non-productive cough and body aches; negative fever(s), headache(s), throat pain, nausea, vomiting or diarrhea COVID 19 other sytmptoms: negative chest pain COVID Results: 2 SARS-CoV-2 Antigen (Rapid) negative (Negative) 03/29/23 17:55 SARS-CoV-2 RNA (RT-PCR) Not detected (NOT DETECTED) 10/06/20 1 2:52 SARS-CoV-2 (PCR) Not detected (NOT DETECT) 03/29/23 17:55 Coronavirus Type 229E (PCR) Not detected (NOT DETECT) 03/29/23 17:55 Review of Systems 2 Const: Reports: chills and body aches; Denies: fever(s) or change in appetite Eyes: Denies: blurry vision or eye discomfort ENMT: Denies: throat pain or dental pain Card: Denies: chest pain Resp: Reports: non-productive cough GI: Denies: abdominal pain, nausea, vomiting or diarrhea Musc: Denies: neck pain or back pain Skin/Breast: Denies: rash Neuro: Denies: headache(s) PFSH ED 2 PFSH: Medical History Carpal tunnel syndrome History of angiography Positive cardiac stress test Family history of coronary artery disease Unstable angina pectoris Chest pain HTN (hypertension) No pertinent family history Surgical History H/O shoulder surgery H/O shoulder surgery No pertinent past surgical history Family History Father Cancer kidney Other CAD (coronary artery disease) Diabetes Hyperlipidemia Hypertension Lung disease Denies family history of Clotting disorder Dementia Psychiatric illness Chronic kidney disease (CKD) Anesthesia complication Bleeding disorder Stroke Social History Smoking and tobacco/nicotine status: current every day tobacco/nicotine user smokeless tobacco Smokeless tobacco user: chewing tobacco Alcohol intake: current Alcohol intake frequency: holidays/special occasions only Substance/Drug Use: never Lives independently: Yes Marital status: Number of children: 4 Current occupational status: employed 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 Current gender identity: Male Special nelly needs: No Agree to transfusion: Yes Physical Exam 2 Const: COMMON NORMALS: no acute distress, patient oriented x3 and healthy appearing HENMT: COMMON NORMALS: normocephalic and atraumatic HEAD & SCALP: n ormocephalic and atraumatic Eye: COMMON NORMALS: Equal, round and reactive pupils present and EOMs intact bilaterally PUPIL: Yes Equal, round and reactive pupils present Neck/C-Spine: COMMON NORMALS: full ROM and supple Chest: COMMONS NORMALS: normal inspection of the chest Resp: COMMON NORMALS: normal respiratory effort, No retractions and No use of accessory muscles AUSCULTATION: wheezes Cardio: COMMON NORMALS: regular rate, regular rhythm and No murmurs present (Cardio) RATE: regular rate RHYTHM: regular rhythm Extremity: COMMON NORMALS: normal to inspection and full ROM Neuro: COMMON NORMALS: patient oriented x3, moves all extremities and no focal motor deficits Psych: COMMON NORMALS: mental status grossly normal, Normal thought process present and cooperative THOUGHT PROCESS: Normal thought process present Skin: COMMON NORMALS: no rashes or lesions noted and no wounds GENERAL SKIN EXAM: no rashes or lesions noted Course 2 Vital Signs: Vital signs: Vital Signs Temperature 98.7 F 03/29/23 17:41 Pulse Rate 118 H 03/29/23 18:54 Respiratory Rate 18 03/29/23 18:09 Blood Pressure 134/97 03/29/23 20:05 Pulse Oximetry 95 03/29/23 20:05 Oxygen Delivery Me thod Room Air 03/29/23 18:54 MDM - COVID Medical Decision Making Patient presents here with cough did test positive for influenza no signs of pneumonia is pulse ox here is normal he is continue his inhaler did give him Decadron here we will prescribe him Tamiflu he is to take Motrin for pain as well and for his fever he is follow-up with PCP and return if worsening. Medical Records I reviewed the patient's medical records. Lab Data I reviewed the patient's lab results. 03/29/23 18:07 03/29/23 18:07 Radiology Impressions Chest X-Ray 03/29/23 17:34 IMPRESSION: 1. No acute cardiopulmonary abnormality. Laboratory Results WBC 3.91 10^3/uL (3.29-11.43) 03/29/23 18:07 RBC 5.00 10^6/uL (3.85-5.65) 03/29/23 18:07 Hgb 15.50 g/dL (11.27-16.99) 03/29/23 18:07 Hct 44.7 % (37-53) 03/29/23 18:07 MCV 89.4 fl (82-101) 03/29/23 18:07 MCH 31.0 pg (27-33) 03/29/23 18:07 MCHC 34.7 g/dL (30-55) 03/29/23 18:07 RDW 12.0 % (12.1-15.1) L 03/29/23 18:07 Plt Count 206 10^3/cmm (157-399) 03/29/23 18:07 MPV 11.3 fL (7.4-10.4) H 03/29/23 18:07 Neut % (Auto) 66.7 % 03/29/23 18:07 Lymph % (Auto) 16.6 % 03/29/23 18:07 [place] % (Auto) 12.5 % 03/29/23 18:07 Eos % (Auto) 3.1 % 03/29/23 18:07 Baso % (Auto) 0.8 % 03/29/23 18:07 Neut # (Auto) 2.61 10^3/uL (1.8-7.7) 03/29/23 18:07 Lymph # (Auto) 0.7 10^3/uL (0.8-4.8) L 03/29/23 18:07 [place] # (Auto) 0.5 10^3/uL (0.2-0.9) 03/29/23 18:07 Eos # (Auto) 0.1 10^3/uL (0.0-0.8) 03/29/23 18:07 Baso # (Auto) 0.0 10^3/uL (0.0-0.1) 03/29/23 18:07 Nucleated RBC % (auto) 0 % 03/29/23 18:07 Nucleated RBCs # 0.0 /100WBC 03/29/23 18:07 Sodium 138 mmol/L (136-145) 03/29/23 18:07 Potassium 4.1 mmol/L (3.5-5.1) 03/29/23 18:07 Chloride 102 mmol/L (98-107) 03/29/23 18:07 Carbon Dioxide 26 mmol/L (22-29) 03/29/23 18:07 Anion Gap 14.1 (5-19) 03/29/23 18:07 BUN 14 mg/dL (6-20) 03/29/23 18:07 Creatinine 1.0 mg/dL (0.7-1.2) 03/29/23 18:07 GFR Calculation 78.5 mL/min (90-130) L 03/29/23 18:07 Glucose 106 mg/dL (65-115) 03/29/23 18:07 Calculated Osmolality 287 mOsm/kg (285-295) 03/29/23 18:07 Calcium 8.7 mg/dL (8.5-10.5) 03/29/23 18:07 Adenovirus (PCR) Not detected (NOT DETECT) 03/29/23 17:55 C. pneumoniae DNA (PCR) Not detected (NOT DETECT) 03/29/23 17:55 Coronavirus 229E (PCR) Not detected (NOT DETECT) 03/29/23 17:55 Human Metapneumovir PCR Not detected (NOT DETECT) 03/29/23 17:55 Influenza A (H1) PCR Not detected (NOT DETECT) 03/29/23 17:55 Influ A (H1/09) PCR Not detected (NOT DETECT) 03/29/23 17:55 Influenza A (H3) PCR Not detected (NOT DETECT) 03/29/23 17:55 Influenza Type A (PCR) Not detected (NOT DETECT) 03/29/23 17:55 Influenza Type B (PCR) Detected (NOT DETECT) A 03/29/23 17:55 M. pneumoniae (PCR) Not detected (NOT DETECT) 03/29/23 17:55 Parainfluenza 1 (PCR) Not detected (NOT DETECT) 03/29/23 17:55 Parainfluenza 2 (PCR) Not detected (NOT DETECT) 03/29/23 17:55 Parainfluenza 3 (PCR) Not detected (NOT DETECT) 03/29/23 17:55 Parainfluenza 4 (PCR) Not detected (NOT DETECT) 03/29/23 17:55 RSV Type A (PCR) Not detected (NOT DETECT) 03/29/23 17:55 RSV Type B (PCR) Not detected (NOT DETECT) 03/29/23 17:55 Entero/Rhino (PCR) Not detected (NOT DETECT) 03/29/23 17:55 SARS-CoV-2 (PCR) Not detected (NOT DETECT) 03/29/23 17:55 SARS-CoV-2 Ag (Rapid) negative (Negative) 03/29/23 17:55 2 SARS-CoV-2 Antigen (Rapid) negative (Negative) 03/29/23 17:55 SARS-CoV-2 RNA (RT-PCR) Not detected (NOT DETECTED) 10/06/20 1 2:52 SARS-CoV-2 (PCR) Not detected (NOT DETECT) 03/29/23 17:55 Coronavirus Type 229E (PCR) Not detected (NOT DETECT) 03/29/23 17:55 All radiology interpretation(s) finalized by discharge Discharge Plan Discharge Patient Disposition: Home Clinical Impression: Influenza Condition: Stable Prescriptions: New Tamiflu 75 mg capsule 75 mg PO BID 5 Days Qty: 10 0RF hydrocodone-acetaminophen 5-325 mg tablet 1 tab PO Q6H PRN (Reason: pain) Qty: 8 0RF No Action nitroglycerin 0.4 mg tablet, sublingual 0.4 mg sublingual Q5M PRN (Reason: chest pain) 30 Days Qty: 30 3RF Rx Instructions: until response; do not exceed 3 doses per episode fluticasone furoate-vilanterol [Breo Ellipta] 200-25 mcg/dose blister with device 1 inh inhalation DAILY Qty: 60 2RF cyclobenzaprine 10 mg tablet 10 mg PO TID PRN (Reason: muscle spasm) Qty: 60 0RF isosorbide mononitrate 30 mg tablet extended release 24 hr 30 mg PO DAILY Qty: 90 2RF metoprolol tartrate 25 mg tablet 25 mg PO BID 30 Days Qty: 60 5RF ropinirole 0.5 mg tablet 0.5 mg PO DAILY Qty: 30 2RF bupropion HCl [Wellbutrin XL] 300 mg tablet extended release 24 hr 300 mg PO QAM Qty: 30 2RF atorvastatin 40 mg tablet 40 mg PO BEDTIME Qty: 60 0RF albuterol sulfate [ProAir HFA] 90 mcg/actuation HFA aerosol inhaler 2 puff inhalation Q6H PRN (Reason: Shortness Of Breath) Qty: 8.5 2RF Zyrtec 10 mg capsule 10 mg PO DAILY Qty: 30 2RF omeprazole 40 mg capsule,delayed release(DR/EC) 40 mg PO DAILY Qty: 90 1RF montelukast [Singulair] 10 mg tablet 10 mg PO DAILY Qty: 30 2RF valsartan 80 mg tablet 120 mg PO QAM aspirin 325 mg tablet 325 mg PO .every 2-3 days Discharge Orders: Discharge ED (Routine); Ordered 03/29/23 Ordered By: Jaylon Enriquez Referrals: Demetris Yeung MD [Primary Care Provider] - 1-3 days Discharge Diet: Advance as tolerated Discharge Activity: Resume usual activity Patient Instructions: Influenza (ED) Stand Alone Forms: Work/School Release Coding Level of Care Code ED Route Driver for Ying Reich
[2023-03-29] MEDS: ipratropium-albuterol 3 mL Neb INHALATION (18:12)
[2023-03-29] MEDS: albuterol 2.5 mg/3 mL Neb INHALATION (18:12)
[2023-03-29] MEDS: sodium chloride 0.9% 1,000 ML 999 ML IV (18:15)
[2023-03-29] MEDS: dexamethasone 10 mg/mL INJ IVP (18:16)
[2023-03-29 18:20] LABS: Basophils % 0.8 %; Eosinophils # 0.1 10^3/uL (0.0-0.8); Eosinophils % 3.1 %; Hematocrit 44.7 % (37-53); Lymphocytes # 0.7 10^3/uL (0.8-4.8); Lymphocytes % 16.6 %; Mean Corpuscular HGB Conc 34.7 g/dL (30-55); Mean Corpuscular Volume 89.4 fl (82-101); Mean Platelet Volume 11.3 fL (7.4-10.4); Monocytes # 0.5 10^3/uL (0.2-0.9); Monocytes % 12.5 %; Neutrophils # 2.61 10^3/uL (1.8-7.7); Neutrophils % 66.7 %; Nucleated Red Blood Cells % 0 %; Platelet Count 206 10^3/cmm (157-399); White Blood Count 3.91 10^3/uL (3.29-11.43)
[2023-03-29 18:37] LABS: SARS Covid-2 Antigen negative (Negative)
[2023-03-29 18:40] LABS: Anion Gap 14.1 (5-19); Blood Urea Nitrogen 14 mg/dL (6-20); Calcium 8.7 mg/dL (8.5-10.5); Carbon Dioxide 26 mmol/L (22-29); Chloride 102 mmol/L (98-107); Glomerular Filtration Rate 78.5 mL/min (90-130); Glucose 106 mg/dL (65-115); Osmolality Calculated 287 mOsm/kg (285-295); Potassium 4.1 mmol/L (3.5-5.1); Sodium 138 mmol/L (136-145)
--- NOTE | 2023-03-29 18:55 | PC.NURSE ---
magazine writer assumed care of pt at 1854 report from Vanesa Taylor
[2023-03-29 20:06] LABS: Adenovirus Not Detected (NOT DETECT); Chlamydia Pneumoniae Not Detected (NOT DETECT); Coronavirus 229E,HKU1,NL63,OC4 Not Detected (NOT DETECT); Human Metapneumovirus Not Detected (NOT DETECT); Human Rhinovirus/Enterovirus Not Detected (NOT DETECT); Influenza A Not Detected (NOT DETECT); Influenza A H1 Not Detected (NOT DETECT); Influenza A H1-2009 Not Detected (NOT DETECT); Influenza A H3 Not Detected (NOT DETECT); Influenza B Detected (NOT DETECT); Mycoplasma Pneumoniae Not Detected (NOT DETECT); Parainfluenza Virus Type 1 Not Detected (NOT DETECT); Parainfluenza Virus Type 2 Not Detected (NOT DETECT); Parainfluenza Virus Type 3 Not Detected (NOT DETECT); Parainfluenza Virus Type 4 Not Detected (NOT DETECT); Respiratory Syncytial Virus A Not Detected (NOT DETECT); Respiratory Syncytial Virus B Not Detected (NOT DETECT); SARS-COV-2 Not Detected (NOT DETECT)
== END 2023-03-29 20:54 | disposition home or self-care (01) ==
PROVIDERS: Emergency Provider Emergency Medicine; PCP Family Medicine
DX: J11.1 Influenza due to unidentified influenza virus with other respiratory manifestations (principal); Z11.52 Encounter for screening for COVID-19; Z79.82 Long term (current) use of aspirin; I10 Essential (primary) hypertension; F17.220 Nicotine dependence, chewing tobacco, uncomplicated
CPT/HCPCS: 71045; 80048; 85025; 87426; 87486; 87581; 87633; 94640; 96361; 96374; 99284; J1100; J7030; J7613

== ENCOUNTER 2023-04-25 11:39 | Outpatient (CLI) | payer OTHER, SELFPAY ==
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
== END 2023-04-25 11:40 | disposition home or self-care (01) ==
LOC: RAD 11:40
PROVIDERS: PCP Family Medicine; Visit Provider Family Medicine
DX: S80.02XA Contusion of left knee, initial encounter (principal); W19.XXXA Unspecified fall, initial encounter
CPT/HCPCS: 73562